=== PATIENT | female | born 1965 | race Caucasian/White ===

== ENCOUNTER 2022-02-14 19:09 | Inpatient (IN) | payer OTHER, SELFPAY ==
--- NOTE | ~2022-02-14 | US_ITS ---
EXAMINATION: US VENOUS ULTRASOUND WITH DOPPLER LOWER EXTREMITY, BILATERAL CLINICAL INFORMATION: Bilateral lower extremity edema COMPARISON: None TECHNIQUE: Ultrasound of the deep veins is performed from the hip to the calf with compression sonography and color and pulse Doppler assessment. Spectral analysis with color-flow imaging is performed. FINDINGS: RIGHT: There is normal venous compression and respiratory variation and augmented flow. The visualized common femoral vein, superficial femoral vein, profunda femoral vein, popliteal vein, and the trifurcation region shows no evidence of deep venous thrombosis. The peroneal veins could not be visualized. There is no significant popliteal fossa cyst. LEFT: There is normal venous compression and respiratory variation and augmented flow. The visualized common femoral vein, superficial femoral vein, profunda femoral vein, popliteal vein, and the trifurcation region shows no evidence of deep venous thrombosis. The peroneal veins could not be visualized. There is no significant popliteal fossa cyst. If the patient's symptoms persist, followup ultrasound in 5 days 7 days might be of value to exclude proximal propagation from a non-visualized calf vein. US/US venous duplex LE BI IMPRESSION: No DVT demonstrated in either lower extremity.
--- OUTSIDE RECORDS SUMMARY | 2022-02-14 19:13 | XMS_ITS | Continuity of Care Document ---
:1965 Author Organization [facility] Address [address] [place] [id number]- Care Team Providers Name Role Phone Alessia MOMIN, Rachael Mccollum Primary Care Physician Encounter [facility] Date(s): 09/20/20 - 09/21/[address] [address] Encounter Diagnosis CAD (coronary artery disease) (Final) - 09/20/20 ECG abnormal (Final) - 09/20/20 Discharge Disposition: A-D/C Home Attending Physician: Steven Tovar MD Admitting Physician: Steven Tovar MD Referring Physician: Not on Staff, Referring MD Allergies, Adverse Reactions, Alerts Substance Reaction Severity Status penicillin Rash <not entered> Active Other Environmental Allergy trees, grass, mold, dust, dust Active mites -cause stuffy nose, watery eyes penicillins systemic edema and rash Persistent Severe Active sulfa drugs systemic edema and rash Persistent Severe Active Immunizations Given and Recorded Vaccine Date Status Refusal Reason influenza virus vaccine, inactivated1 02/05/19 Given tetanus/diphtheria/pertussis, acel(Tdap)2 08/20/18 Given 1Result Comment: [facility] [id number] Site Left [id number] Comment: Given without Incident Medications aspirin 81 mg oral delayed release tablet = 81 mg, By Mouth, Daily, # 30 tablet, 0 Refills, Maintenance, 07/29/20 13:22:00 EDT, EC Tablet, [facility], Partial fill upon patient request if the prescription is for a schedule II opioid drug., 158, cm, 07/29/20 12:06:00 EDT, Height,... Start Date: 07/29/20 Stop Date: 08/28/20 Status: OrderedclonazePAM 1 mg oral tablet See Instructions, Take 1/2 tab by mouth TID prn anxiety, May caouse drowsiness., # 45 tablet, 2 Refills, Maintenance, 08/18/20 17:16:00 EDT, [facility]/pharmacy #[id number], 157, cm, 08/02/20 15:21:00 EDT, Height, 101.7, kg, 08/02/20 1:31:00 EDT, Dry Weight Start Date: 08/18/20 Status: Orderedclopidogrel 75 mg oral tablet 75 mg, 1, tablet, By Mouth, Daily, take clopidogrel 300 mg once first day and from the next day take75 mg daily and stop taking the ticagrelor. continue aspirin, # 90 tablet, Refills 3, Tot. Refills 3, Maintenance, 09/13/20 16:02:00 EDT, Route to [facility]... Start Date: 09/13/20 Stop Date: 09/08/21 Status: Orderedgabapentin 100 mg oral capsule 100 mg, 1, capsule, By Mouth, 3 times a day, # 90 capsule, Refills 0, Maintenance, 09/20/20 18:11:00EDT, Partial fill upon patient request if the prescription is for a schedule II opioid drug. Start Date: 09/20/20 Status: Orderedgabapentin 100 mg oral capsule 100 mg, Capsule, By Mouth, 09/21/20 15:00:00 EDT Start Date: 09/21/20 Stop Date: 09/21/20 Status: Completedisosorbide mononitrate 30 mg oral tablet, extended release 1 tablet = 30 mg, By Mouth, Daily in AM, # 30 tablet, 2 Refills, Maintenance, 09/21/20 17:45:00 EDT,ER Tablet, [facility]/pharmacy #[id number], Partial fill upon patient request if the prescription is for a schedule II opioid drug., 157, cm, 09/16/20 16:24:00 EDT... Start Date: 09/21/20 Status: OrderedLipitor 80 mg oral tablet 1 tablet = 80 mg, By Mouth, Daily at bedtime, # 30 tablet, 0 Refills, Maintenance, 07/29/20 13:23:00EDT, Tablet, [facility], Partial fill upon patient request if the prescription is for a schedule II opioid drug., 158, cm, 07/29/20 12:0... Start Date: 07/29/20 Stop Date: 08/28/20 Status: Orderedlosartan 25 mg oral tablet 25 mg, Tablet, By Mouth, 09/21/20 9:00:00 EDT Start Date: 09/21/20 Stop Date: 09/21/20 Status: Completedlosartan 25 mg oral tablet 25 mg, 1, tablet, By Mouth, Daily, # 30 tablet, Refills 0, Tot. Refills 0, Maintenance, 07/29/20 13:23:00 EDT, Route to Pharmacy Electronically, [facility], Partial fill upon patient request if the prescription is for a schedule II opioi... Start Date: 07/29/20 Stop Date: 08/28/20 Status: Orderedmetoprolol 50 mg oral tablet, extended release 50 mg, XL Tablet, By Mouth, 09/21/20 9:00:00 EDT Start Date: 09/21/20 Stop Date: 09/21/20 Status: Completedmetoprolol 50 mg oral tablet, extended release 50 mg, 1, tablet, By Mouth, Daily, # 30 tablet, Refills 0, Tot. Refills 0, Maintenance, 07/29/20 13:24:00 EDT, Route to Pharmacy Electronically, [facility], Partial fill upon patient request if the prescription is for a schedule II opioi... Start Date: 07/29/20 Stop Date: 08/28/20 Status: OrderedMorPHINE Inj 2 mg, Injection, IV Push Slowly, Every 4 hours for 4 doses/times, PRN for Pain , Severe, Routine, 09/21/20 7:28:00 EDT, Stop date Limited # of times Start Date: 09/21/20 Status: Orderednitroglycerin 0.4 mg sublingual tablet 1 tablet = 0.4 mg, Sublingual, Every 5 minutes, PRN Chest Pain, not to exceed 3 doses/15 min--if pain persists, seek medical attention, # 100 tablet, 0 Refills, Maintenance, 08/02/20 16:09:00 EDT, Tablet, [facility], Partial fill upon pa... Start Date: 08/02/20 Status: OrderedNitroglycerin 2% Topical 1 inches, Ointment, Topically, Apply to Chest, Hold from 9 PM to 9 AM, 09/21/20 6:14:00 EDT Start Date: 09/21/20 Stop Date: 09/21/20 Status: CompletedPARoxetine 10 mg oral tablet 1, tablet, By Mouth, Daily in AM, # 90 tablet, Refills 1, Tot. Refills 1, Maintenance, 04/27/20 12:11:00 EST, Route to Pharmacy Electronically, [facility]/pharmacy #[id number], 156.5, cm, 04/27/20 11:33:00 EST, Height, 97.2, kg, 05/06/19 6:59:00 EST, Dry Weight Start Date: 04/27/20 Status: OrderedtraZODone 100 mg oral tablet 1.5, tablet, By Mouth, Daily at bedtime, # 135 tablet, Refills 0, Tot. Refills 0, Maintenance, 07/09/20 9:31:00 EDT, Route to Pharmacy Electronically, [id number], 156.5, cm, 04/27/20 11:33:00 EST,Height, 97.2, kg, 05/06/19 6:59:00 EST, Dry Weight Start Date: 07/09/20 Status: Ordered Problem List Condition Effective Dates Status Health Status Informant Anxiety(Confirmed) Active Chloasma(Confirmed) Active Depression(Confirmed) Active Gastroesophageal reflux(Confirmed) Active Stress incontinence(Confirmed) Active Keloid scar(Confirmed) Active Non-neoplastic nevus(Confirmed) Active Obesity(Confirmed) Active Osteoarthritis(Confirmed) Active Rosacea(Confirmed) Active Shoulder pain(Confirmed) Active Thalassemia(Confirmed) Active Vital Signs Most recent to oldest 1 2 3 4 5 [Reference Range]: Oxygen Saturation 98 % 97 % 97 % [94-100 %] (09/21/20 3:46 PM) (09/21/20 11:15 AM) (09/21/20 7:00 AM) Pulse Rate [55-90 66 bpm 62 bpm 63 bpm bpm] (09/21/20 3:46 PM) (09/21/20 11:15 AM) (09/21/20 8:42 AM) Blood Pressure 140/71 mm Hg 119/63 mm Hg 120/69 mm Hg 120/69 mm Hg 12 0/69 mm Hg [90-138/55-84 mm Hg] *H* (09/21/20 11:15 AM) (09/21/20 8:42 AM) ( 8:42 AM) (09/21/20 8:42 AM) (09/21/20 3:46 PM) Respiratory Rate 18 br/min 17 br/min 17 br/min [16-30 br/min] (09/21/20 5:10 PM) (09/21/20 3:49 PM) (09/21/20 3:46 PM) Temperature 97.5 DegF 97.4 DegF 97.7 DegF [96.8-100.4 DegF] (09/21/20 3:46 PM) (09/21/20 11:15 AM) (09/21/20 7:00 AM) Liters per Minute 0 L/min (09/20/20 1:24 PM) Mode of Delivery Room air Room air Room air (Oxygen) (09/21/20 3:46 PM) (09/21/20 11:15 AM) (09/21/20 3:45 AM) Blood pressure sites Arm, right Arm, left Arm, right (09/21/20 3:46 PM) (09/21/20 11:15 AM) (09/21/20 7:00 AM) Temperature Route Oral Oral Oral (09/21/20 3:46 PM) (09/21/20 11:15 AM) (09/21/20 7:00 AM) Social History Social History Type Response Smoking Status Never smoker entered on: 02/13/14 Sex
--- OUTSIDE RECORDS SUMMARY | 2022-02-14 19:13 | XMS_ITS | Continuity of Care Document ---
:1965 Author Organization [facility] Address [address] [place] [id number]- Care Team Providers Name Role Phone Alessia MOMIN, Rachael Mccollum Primary Care Physician Encounter [facility] Date(s): 05/06/19 - 05/06/[address] [address]- [facility] Discharge Disposition: A-D/C Home Attending Physician: Arti Johnson MD Admitting Physician: Arti Johnson MD Referring Physician: Arti Johnson MD Allergies, Adverse Reactions, Alerts Substance Reaction Severity Status penicillin Rash <not entered> Active acetaZOLAMIDE sulfa drugs cause systemic edema and rash Active Rash penicillins systemic edema and rash Persistent Severe Active sulfa drugs systemic edema and rash Persistent Severe Active Other Environmental Allergy trees, grass, mold, dust, dust Active mites -cause stuffy nose, watery eyes Immunizations Given and Recorded Vaccine Date Status Refusal Reason influenza virus vaccine, inactivated1 02/05/19 Given tetanus/diphtheria/pertussis, acel(Tdap)2 08/20/18 Given 1Result Comment: [facility] [id number] Site Left [id number] Comment: Given without Incident Medications Baclofen = 20 mg, By Mouth, Daily at bedtime, 0 Refills, Maintenance, 04/30/19 14:58:00 EST Start Date: 04/30/19 Status: Orderedbaclofen 10 mg oral tablet 10 mg, 1, tablet, By Mouth, Daily in AM, # 270 tablet, Refills 0, Maintenance, 02/05/19 15:51:24 EDT Start Date: 02/05/19 Status: OrderedClaritin-D 24 Hour 1 tablet, By Mouth, Daily, 0 Refills, Maintenance, 04/17/14 8:28:31 Start Date: 04/17/14 Status: OrderedclonazePAM 1 mg oral tablet See Instructions, Take 1/2 tab by mouth TID prn anxiety, May caouse drowsiness., # 45 tablet, 2 Refills, Maintenance, 02/20/19 11:46:35 EDT Start Date: 02/20/19 Status: OrderedEstrace Vaginal Cream 0.1 mg/g See Instructions, 1 Gm Vaginally every other day at bedtime, # 42.5 Gm, 0 Refills, Maintenance, 05/06/19 8:31:00 EST, [facility]/pharmacy #[id number], 156.5, cm, 05/06/19 6:59:00 EST, Height, 97.2, kg, 05/06/19 6:59:00 EST, Dry Weight Start Date: 05/06/19 Status: Orderedgabapentin 300 mg/24 hours oral tablet, extended release 1 tablet = 300 mg, By Mouth, 4 times a day, PRN Other, # 90 tablet, 0 Refills, Maintenance, 02/05/1915:52:24 EDT, Tablet Start Date: 02/05/19 Status: OrderedImodium A-D 2 mg, By Mouth, Every 4 hours, Refills 0, Maintenance, 05/06/19 6:55:00 EST Start Date: 05/06/19 Status: OrderedPARoxetine 40 mg oral tablet See Instructions, TAKE 1 TABLET BY MOUTH EVERY DAY IN THE MORNING, # 90 tablet, Refills 1, Tot. Refills 1, Soft Stop, 04/28/19 13:48:00 EST, Instructions Replace Required Details, Route to Pharmacy Electronically, [facility]/pharmacy #[id number], 157.5, cm, 03/12/... Start Date: 04/28/19 Status: OrderedtraZODone 100 mg oral tablet See Instructions, # 45 tablet, Refills 5 Tot. Refills 5, TAKE 1 AND 1/2 TABLETS BY MOUTH DAILY AT BEDTIME, [facility]/pharmacy #[id number] Start Date: 03/09/19 Status: Ordered Problem List Condition Effective Dates Status Health Status Informant Anxiety(Confirmed) Active Chloasma(Confirmed) Active Depression(Confirmed) Active Gastroesophageal reflux(Confirmed) Active Stress incontinence(Confirmed) Active Keloid scar(Confirmed) Active Non-neoplastic nevus(Confirmed) Active Obesity(Confirmed) Active Osteoarthritis(Confirmed) Active Rosacea(Confirmed) Active Shoulder pain(Confirmed) Active Thalassemia(Confirmed) Active Vital Signs Most recent to oldest 1 2 3 [Reference Range]: Height 156.5 cm 157.48 cm (05/06/19 6:59 AM) (04/30/19 2:56 PM) Weight 97.2 kg 95.45 kg (05/06/19 6:59 AM) (04/30/19 2:56 PM) Oxygen Saturation [94-100 95 % 98 % 97 % %] (05/06/19 10:00 AM) (05/06/19 9:45 AM) (05/06/19 9: 30 AM) Pulse Rate [55-90 bpm] 81 bpm (05/06/19 6:59 AM) Body Mass Index 39.69 38.49 [18.5-24.99] *>HHI* *>HHI* (05/06/19 6:59 AM) (04/30/19 2:56 PM) Blood Pressure 137/72 mm Hg 134/68 mm Hg 134/72 mm Hg [90-138/55-84 mm Hg] (05/06/19 10:00 AM) (05/06/19 9:45 AM) ( 9:30 AM) Respiratory Rate [16-30 16 br/min 11 br/min 18 br/mi n br/min] (05/06/19 10:00 AM) *L* (05/06/19 9:36 AM) (05/06/19 9:45 AM) Temperature [96.8-100.4 97.3 DegF 97.6 DegF 97.8 Deg F DegF] (05/06/19 10:00 AM) (05/06/19 8:30 AM) (05/06/19 6: 59 AM) Liters per Minute 2 L/min 2 L/min 2 L/min (05/06/19 9:45 AM) (05/06/19 9:30 AM) (05/06/19 9:1 5 AM) Mode of Delivery (Oxygen) Room air Nasal cannula Nasal cannula (05/06/19 10:00 AM) (05/06/19 9:45 AM) (05/06/19 9: 30 AM) Blood pressure sites Arm, right (05/06/19 6:59 AM) Temperature Route Temporal Temporal (05/06/19 10:00 AM) (05/06/19 6:59 AM) Dry Weight 97.2 kg 95.45 kg (05/06/19 6:59 AM) (04/30/19 2:56 PM) Weight Obtained Via Standing scale Patient/family stated (05/06/19 6:59 AM) (04/30/19 2:56 PM) Dry Weight Obtained Via Standing scale Patient/family stated (05/06/19 6:59 AM) (04/30/19 2:56 PM) Social History Social History Type Response Smoking Status Never smoker entered on: 02/13/14 Sex
--- OUTSIDE RECORDS SUMMARY | 2022-02-14 19:13 | XMS_ITS | Continuity of Care Document ---
:1965 Author Organization [facility] Address [address] [place] [address]- Care Team Providers Name Role Phone Alessia MOMIN, Rachael Mccollum Primary Care Physician [place] [facility] Date(s): 02/07/22 - 02/07/[address] [address] Discharge Disposition: A-D/C Home Attending Physician: Jagdeep Reis MD Admitting Physician: Jagdeep Reis MD Referring Physician: Marry Arredondo NP Allergies, Adverse Reactions, Alerts Substance Reaction Severity Status penicillin Rash <not entered> Active penicillins systemic edema and rash Persistent Severe Active sulfa drugs systemic edema and rash Persistent Severe Active Other Environmental Allergy trees, grass, mold, dust, dust Active mites -cause stuffy nose, watery eyes Immunizations Given and Recorded Vaccine Date Status Refusal Reason SARS-CoV-2 (COVID-19) mRNA BNT-162b2 vac 05/16/21 Recorde d SARS-CoV-2 (COVID-19) mRNA BNT-162b2 vac 10/11/20 Recorde d SARS-CoV-2 (COVID-19) mRNA BNT-162b2 vac 08/21/20 Recorde d influenza virus vaccine, inactivated 04/01/21 Given influenza virus vaccine, inactivated 01/15/20 Recorded influenza virus vaccine, inactivated1 02/05/19 Given influenza virus vaccine, inactivated 02/07/17 Recorded influenza virus vaccine, inactivated 02/15/16 Recorded influenza virus vaccine, inactivated 03/01/10 Recorded zoster vaccine, inactivated 02/18/20 Recorded tetanus/diphtheria/pertussis, acel(Tdap)2 08/20/18 Given 1Result Comment: [facility] [place] [id number] Site Left [id number] Comment: Given without Incident Medications amLODIPine 5 mg oral tablet TAKE 1 TABLET BY MOUTH EVERY DAY Start Date: 02/07/22 Status: Orderedaspirin 81 mg oral delayed release tablet = 81 mg, By Mouth, Daily, # 30 tablet, 0 Refills, Maintenance, 07/29/20 13:22:00 EDT, EC Tablet, [facility], Partial fill upon patient request if the prescription is for a schedule II opioid drug., 158, cm, 07/29/20 12:06:00 EDT, Height,... Start Date: 07/29/20 Stop Date: 08/28/20 Status: OrderedClaritin 10 mg oral tablet 10 mg, 1, tablet, By Mouth, Daily, # 30 tablet, Refills 0, Maintenance, 10/10/21 21:10:00 EDT, Partial fill upon patient request if the prescription is for a schedule II opioid drug. Start Date: 10/10/21 Status: OrderedclonazePAM 1 mg oral tablet See Instructions, Take 1/2 tab by mouth TID prn anxiety, May caouse drowsiness., # 45 tablet, 1 Refills, Maintenance, 01/26/22 17:36:00 EDT, [facility]/pharmacy #[id number], 155, cm, 12/15/21 9:03:00 EDT, Height, 108.8, kg, 12/15/21 8:48:00 EDT, Dry Weight Start Date: 01/26/22 Status: Orderedclopidogrel 75 mg oral tablet 75 mg, 1, tablet, By Mouth, Daily, take clopidogrel 300 mg once first day and from the next day take75 mg daily and stop taking the ticagrelor. continue aspirin, # 90 tablet, Refills 3, Tot. Refills 3, Maintenance, 09/13/20 16:02:00 EDT, Route to Pha... Start Date: 09/13/20 Stop Date: 09/08/21 Status: OrderedLipitor 80 mg oral tablet 1 tablet = 80 mg, By Mouth, Daily at bedtime, # 30 tablet, 0 Refills, Maintenance, 07/29/20 13:23:00EDT, Tablet, [facility], Partial fill upon patient request if the prescription is for a schedule II opioid drug., 158, cm, 07/29/20 12:0... Start Date: 07/29/20 Stop Date: 08/28/20 Status: Orderedmetoprolol 50 mg oral tablet, extended release 50 mg, 1, tablet, By Mouth, Daily, # 30 tablet, Refills 0, Tot. Refills 0, Maintenance, 07/29/20 13:24:00 EDT, Route to Pharmacy Electronically, [facility], Partial fill upon patient request if the prescription is for a schedule II opioi... Start Date: 07/29/20 Stop Date: 08/28/20 Status: Orderednitroglycerin 0.4 mg sublingual tablet 1 tablet = 0.4 mg, Sublingual, Every 5 minutes, PRN Chest Pain, not to exceed 3 doses/15 min--if pain persists, seek medical attention, # 100 tablet, 0 Refills, Maintenance, 08/02/20 16:09:00 EDT, Tablet, [facility], Partial fill upon pa... Start Date: 08/02/20 Status: OrderedPARoxetine 40 mg oral tablet 1, tablet, By Mouth, Daily in AM, # 90 tablet, Refills 0, Route to Pharmacy Electronically, [id number], 155, cm, 11/04/21 11:55:00 EDT, Height, 109.5, kg, 10/11/21 0:03:00 EDT, Dry Weight Start Date: 12/14/21 Status: OrderedpredniSONE 10 mg oral tablet See Instructions, Take 6 by mouth today and tomorrow, then decrease by 1 daily., # 27 tablet, 0 Refills, Maintenance, 11/04/21 12:18:00 EDT, [facility]/pharmacy #[id number], Partial fill upon patient request if theprescription is for a schedule II opioid drug., 1... Start Date: 11/04/21 Status: OrderedtraZODone 100 mg oral tablet 1.5, tablet, By Mouth, Daily at bedtime, # 135 tablet, Refills 1, Route to Pharmacy Electronically, [id number], 157, cm, 04/01/21 14:39:00 EST, Height, 101.7, kg, 08/02/20 1:31:00 EDT, Dry Weight Start Date: 06/03/21 Status: OrderedZyrTEC 10 mg oral tablet 1 tablet = 10 mg, By Mouth, Daily, # 30 tablet, 0 Refills, Maintenance, 12/15/21 8:50:00 EDT, Tablet, Partial fill upon patient request if the prescription is for a schedule II opioid drug. Start Date: 12/15/21 Status: Ordered Problem List Condition Confirmation Course Effective Dates Status Health I nformant Status Anxiety Confirmed Active Arthritis of right Confirmed Active knee Chloasma Confirmed Active Depression Confirmed Active Gastroesophageal Confirmed Active reflux Stress incontinence Confirmed Active Keloid scar Confirmed Active Non-neoplastic nevus Confirmed Active Obesity Confirmed Active Osteoarthritis Confirmed Active Rosacea Confirmed Active Severe obesity Confirmed Active Shoulder pain Confirmed Active Thalassemia Confirmed Active Vital Signs Most recent to oldest 1 2 3 [Reference Range]: Height 163 cm 163 cm (02/07/22 7:40 AM) (02/07/22 7:39 AM) Weight 112.0 kg 112.0 kg (02/07/22 7:40 AM) (02/07/22 7:39 AM) Oxygen Saturation [94-100 %] 96 % 94 % 93 % (02/07/22 3:45 PM) (02/07/22 3:30 PM) *L* (02/07/22 3:15 P M) Pulse Rate [55-90 bpm] 69 bpm (02/07/22 7:40 AM) Body Mass Index [18.5-24.99 42.15 kg/m2 kg/m2] *>HHI* (02/07/22 7:40 AM) Blood Pressure [90-138/55-84 121/75 mm Hg 119/72 mm Hg 128 /73 mm Hg mm Hg] (02/07/22 3:45 PM) (02/07/22 3:30 PM) (02/07/22 3:15 PM) Respiratory Rate [16-30 21 br/min 26 br/min 24 br/mi n br/min] (02/07/22 3:45 PM) (02/07/22 3:30 PM) (02/07/22 3:15 PM) Temperature [96.8-100.4 97.4 DegF DegF] (02/07/22 7:40 AM) Mode of Delivery (Oxygen) Room air Room air Room a ir (02/07/22 3:45 PM) (02/07/22 3:30 PM) (02/07/22 3:15 PM) Blood pressure sites Arm, left Arm, left Arm, left (02/07/22 1:30 PM) (02/07/22 1:15 PM) (02/07/22 7:45 AM) Temperature Route Temporal (02/07/22 7:40 AM) Dry Weight 112.0 kg 112.0 kg (02/07/22 7:40 AM) (02/07/22 7:39 AM) Weight Obtained Via Standing scale Standing scale (02/07/22 7:40 AM) (02/07/22 7:39 AM) Dry Weight Obtained Via Standing scale Standing scale (02/07/22 7:40 AM) (02/07/22 7:39 AM) Social History Social History Type Response Smoking Status Never smoker entered on: 02/13/14 Sex Patient Care team information PersonnelName: Alessia MOMIN, Rachael Mccollum Address: Address: [address] [place] [address] Primary [place], [place] [address]
--- OUTSIDE RECORDS SUMMARY | 2022-02-14 19:13 | XMS_ITS | Continuity of Care Document ---
:1965 Author Organization [facility] Address [address] [place] [address]- Care Team Providers Name Role Phone Alessia MOMIN, Rachael Mccollum Primary Care Physician Encounter [facility] Date(s): 04/21/21 - 07/16/[address] [address] Attending Physician: Arti Johnson MD Admitting Physician: [...] Date Status Refusal Reason influenza virus vaccine, inactivated 04/01/21 Given influenza virus vaccine, inactivated1 02/05/19 Given tetanus/diphtheria/pertussis, acel(Tdap)2 08/20/18 Given 1Result Comment: [facility] [id number] Site Left [id number] Comment: Given without Incident Medications aspirin 81 mg oral delayed release tablet = 81 mg, By Mouth, Daily, # 30 tablet, 0 Refills, Maintenance, 07/29/20 13:22:00 EDT, EC Tablet, [facility], Partial fill upon patient request if the prescription is for a schedule II opioid drug., 158, cm, 07/29/20 12:06:00 EDT, Height,... Start Date: 07/29/20 Stop Date: 08/28/20 Status: OrderedclonazePAM 1 mg oral tablet See Instructions, Take 1/2 tab by mouth TID prn anxiety, May caouse drowsiness., # 45 tablet, 0 Refills, Maintenance, 06/08/21 10:04:00 EST, [facility]/pharmacy #[id number], 157, cm, 04/01/21 14:39:00 EST, Height, 101.7, kg, 08/02/20 1:31:00 EDT, Dry Weight Start Date: 06/08/21 Status: Orderedclopidogrel 75 mg oral tablet 75 mg, 1, tablet, By Mouth, Daily, take clopidogrel 300 mg once first day and from the next day take75 mg daily and stop taking the ticagrelor. continue aspirin, # 90 tablet, Refills 3, Tot. Refills 3, Maintenance, 09/13/20 16:02:00 EDT, Route to [facility]... Start Date: 09/13/20 Stop Date: 09/08/21 Status: Orderedgabapentin 100 mg oral capsule 100 mg, 1, capsule, By Mouth, 3 times a day, # 90 capsule, Refills 0, Maintenance, 09/20/20 18:11:00EDT, Partial fill upon patient request if the prescription is for a schedule II opioid drug. Start Date: 09/20/20 Status: Orderedisosorbide mononitrate 30 mg oral tablet, extended release 1 tablet = 30 mg, By Mouth, Daily in AM, # 30 tablet, 2 Refills, Maintenance, 09/21/20 17:45:00 EDT,ER Tablet, [facility]/pharmacy #[id number], Partial fill upon patient request if the prescription is for a schedule II opioid drug., 157, cm, 09/16/20 16:24:00 EDT... Start Date: 09/21/20 Status: OrderedLipitor 80 mg oral tablet 1 tablet = 80 mg, By Mouth, Daily at bedtime, # 30 tablet, 0 Refills, Maintenance, 07/29/20 13:23:00EDT, Tablet, [facility], Partial fill upon patient request if the prescription is for a schedule II opioid drug., 158, cm, 07/29/20 12:0... Start Date: 07/29/20 Stop Date: 08/28/20 Status: Orderedlosartan 25 mg oral tablet 25 mg, 1, tablet, By Mouth, Daily, # 30 tablet, Refills 0, Tot. Refills 0, Maintenance, 07/29/20 13:23:00 EDT, Route to Pharmacy Electronically, [facility], Partial fill upon patient request if the prescription is for a schedule II opioi... Start Date: 07/29/20 Stop Date: 08/28/20 Status: Orderedmetoprolol 50 mg oral tablet, extended release 50 mg, 1, tablet, By Mouth, Daily, # 30 tablet, Refills 0, Tot. Refills 0, Maintenance, 07/29/20 13:24:00 EDT, Route to Pharmacy Electronically, [facility] 3, Partial fill upon patient request if the prescription is for a schedule II opioi... Start Date: 07/29/20 Stop Date: 08/28/20 Status: Orderednitroglycerin 0.4 mg sublingual tablet 1 tablet = 0.4 mg, Sublingual, Every 5 minutes, PRN Chest Pain, not to exceed 3 doses/15 min--if pain persists, seek medical attention, # 100 tablet, 0 Refills, Maintenance, 08/02/20 16:09:00 EDT, Tablet, [facility] 3, Partial fill upon pa... Start Date: 08/02/20 Status: OrderedPARoxetine 10 mg oral tablet 1, tablet, By Mouth, Daily in AM, # 90 tablet, Refills 1, Tot. Refills 1, Maintenance, 04/01/21 14:47:00 EST, Route to Pharmacy Electronically, [facility]/pharmacy #[id number], 157, cm, 04/01/21 14:39:00 EST, Height, 101.7, kg, 08/02/20 1:31:00 EDT, Dry Weight Start Date: 04/01/21 Status: OrderedPARoxetine 40 mg oral tablet 1, tablet, By Mouth, Daily in AM, # 90 tablet, Refills 0, Route to Pharmacy Electronically, [facility] STORE [id number], 157, cm, 09/16/20 16:24:00 EDT, Height, 101.7, kg, 08/02/20 1:31:00 EDT, Dry Weight Start Date: 03/02/21 Status: OrderedtraZODone 100 mg oral tablet 1.5, tablet, By Mouth, Daily at bedtime, # 135 tablet, Refills 1, Route to Pharmacy Electronically, [facility] STORE [id number], 157, cm, 04/01/21 14:39:00 EST, Height, 101.7, kg, 08/02/20 1:31:00 EDT, Dry Weight Start Date: 06/03/21 Status: Ordered Problem List Condition Effective Dates Status Health Status Informant Anxiety(Confirmed) Active Arthritis of right knee(Confirmed) Active Chloasma(Confirmed) Active Depression(Confirmed) Active Gastroesophageal reflux(Confirmed) Active Stress incontinence(Confirmed) Active Keloid scar(Confirmed) Active Non-neoplastic nevus(Confirmed) Active Obesity(Confirmed) Active Osteoarthritis(Confirmed) Active Rosacea(Confirmed) Active Severe obesity(Confirmed) Active Shoulder pain(Confirmed) Active Thalassemia(Confirmed) Active Social History Social History Type Response Smoking Status Never smoker entered on: 02/13/14 Sex
--- OUTSIDE RECORDS SUMMARY | 2022-02-14 19:13 | XMS_ITS | Continuity of Care Document ---
:1965 Author Organization [facility] Address [address] [place] [address]- Care Team Providers Name Role Phone Alessia MOMIN, Rachael Mccollum Primary Care Physician Encounter [facility] ACCT R [id number] Date(s): 08/11/20 - 09/16/[address] [address] Attending Physician: Jagdeep Ries MD Admitting Physician: Jagdeep Reis MD Referring Physician: Jagdeep Reis MD Allergies, Adverse Reactions, Alerts Substance Reaction [...] Given tetanus/diphtheria/pertussis, acel(Tdap)2 08/20/18 Given 1Result Comment: [facility] [id number] Site Left [id number] Comment: Given without Incident Medications aspirin 81 mg oral delayed release tablet = 81 mg, By Mouth, Daily, # 30 tablet, 0 Refills, Maintenance, 07/29/20 13:22:00 EDT, EC Tablet, [facility], Partial fill upon patient request if the prescription is for a schedule II opioid drug., 158, cm, 07/29/20 12:06:00 EDT, Height,... Start Date: 07/29/20 Stop Date: 08/28/20 Status: OrderedclonazePAM 1 mg oral tablet See Instructions, Take 1/2 tab by mouth TID prn anxiety, May caouse drowsiness., # 45 tablet, 2 Refills, Maintenance, 08/18/20 17:16:00 EDT, [facility]/pharmacy #[id number], 157, cm, 08/02/20 15:21:00 EDT, Height, [...] Date: 09/13/20 Stop Date: 09/08/21 Status: Orderedgabapentin 300 mg/24 hours oral tablet, extended release 1 tablet = 300 mg, By Mouth, 4 times a day, PRN Other, # 90 tablet, 0 Refills, Maintenance, 02/05/1915:52:24 EDT, Tablet Start Date: 02/05/19 Status: OrderedLipitor 80 mg oral tablet 1 tablet = 80 mg, By Mouth, Daily at bedtime, # 30 tablet, 0 Refills, Maintenance, 07/29/20 13:23:00EDT, Tablet, [facility], Partial fill upon patient request if the prescription is for a schedule II opioid drug., 158, cm, 07/29/20 12:0... Start Date: 07/29/20 Stop Date: 08/28/20 Status: Orderedlosartan 25 mg oral tablet 25 mg, 1, tablet, By Mouth, Daily, # 30 tablet, Refills 0, Tot. Refills 0, Maintenance, 07/29/20 13:23:00 EDT, Route to Pharmacy Electronically, [facility], Partial fill upon patient request if the prescription is for a schedule II opioi... Start Date: 07/29/20 Stop Date: 08/28/20 Status: Orderedmetoprolol 50 mg oral tablet, extended release 50 mg, 1, tablet, By Mouth, Daily, # 30 tablet, Refills 0, Tot. Refills 0, Maintenance, 07/29/20 13:24:00 EDT, Route to Pharmacy Electronically, [facility], Partial fill upon patient request if the prescription is for a schedule II opioi... Start Date: 07/29/20 Stop Date: 08/28/20 Status: Orderednitroglycerin 0.4 mg sublingual tablet 1 tablet = 0.4 mg, Sublingual, Every 5 minutes, PRN Chest Pain, not to exceed 3 doses/15 min--if pain persists, seek medical attention, # 100 tablet, 0 Refills, Maintenance, 08/02/20 16:09:00 EDT, Tablet, [facility], Partial fill upon pa... Start Date: 08/02/20 Status: OrderedPARoxetine 10 mg oral tablet 1, tablet, By Mouth, Daily in AM, # 90 tablet, Refills 1, Tot. Refills 1, Maintenance, 04/27/20 12:11:00 EST, Route to Pharmacy Electronically, [facility]/pharmacy #[id number], 156.5, cm, 04/27/20 11:33:00 EST, Height, 97.2, kg, 05/06/19 6:59:00 EST, Dry Weight Start Date: 04/27/20 Status: OrderedPARoxetine 40 mg oral tablet 1, tablet, By Mouth, Daily in AM, # 90 tablet, Refills 1, Tot. Refills 0, Maintenance, 06/11/20 13:10:00 EST, Route to Pharmacy Electronically, [facility] [id number], 156.5, cm, 04/27/20 11:33:00 EST, Height, 97.2, kg, 05/06/19 6:59:00 EST, Dry Weight Start Date: 06/11/20 Status: OrderedtraZODone 100 mg oral tablet 1.5, tablet, By Mouth, Daily at bedtime, # 135 tablet, Refills 0, Tot. Refills 0, Maintenance, 07/09/20 9:31:00 EDT, Route to Pharmacy Electronically, [id number], 156.5, cm, 04/27/20 11:33:00 EST,Height, 97.2, kg, 05/06/19 6:59:00 EST, Dry Weight Start Date: 07/09/20 Status: Ordered Problem List Condition Effective Dates Status Health Status Informant Anxiety(Confirmed) Active Chloasma(Confirmed) Active Depression(Confirmed) Active Gastroesophageal reflux(Confirmed) Active Stress incontinence(Confirmed) Active Keloid scar(Confirmed) Active Non-neoplastic nevus(Confirmed) Active Obesity(Confirmed) Active Osteoarthritis(Confirmed) Active Rosacea(Confirmed) Active Shoulder pain(Confirmed) Active Thalassemia(Confirmed) Active Social History Social History Type Response Smoking Status Never smoker entered on: 02/13/14 Sex
--- OUTSIDE RECORDS SUMMARY | 2022-02-14 19:14 | XMS_ITS | Continuity of Care Document ---
:1965 Author Organization [facility] Address [address] [place] [address]- Care Team Providers Name Role Phone Rachael Aggarwal MD Primary Care Physician Encounter [facility] ACCT R [id number] Date(s): 09/23/20 - 11/13/[address] [address]- Attending Physician: Rachael Aggarwal MD Admitting Physician: Rachael Aggarwal MD Referring Physician: Rachael Aggarwal MD Allergies, Adverse Reactions, Alerts Substance Reaction [...] tetanus/diphtheria/pertussis, acel(Tdap)2 08/20/18 Given 1Result Comment: [facility] [id number] Site Left [id number] Comment: Given without Incident Medications aspirin 81 mg oral delayed release tablet = 81 mg, By Mouth, Daily, # 30 tablet, 0 Refills, Maintenance, 07/29/20 13:22:00 EDT, EC Tablet, [facility], Partial fill upon patient request if the prescription is for a schedule II opioid drug., 158, cm, 07/29/20 12:06:00 EDT, Height,... Start Date: 07/29/20 Stop Date: 08/28/20 Status: OrderedclonazePAM 1 mg oral tablet See Instructions, Take 1/2 tab by mouth TID prn anxiety, May caouse drowsiness., # 45 tablet, 2 Refills, Maintenance, 08/18/20 17:16:00 EDT, [facility]/pharmacy #[id number], 157, cm, 08/02/20 15:21:00 EDT, Height, [...] 3, Maintenance, 09/13/20 16:02:00 EDT, Route to [facility]... Start Date: 09/13/20 Stop Date: [...] 2 Refills, Maintenance, 09/21/20 17:45:00 EDT,ER Tablet, [facility]/pharmacy #[id number], Partial fill upon patient request if the prescription is for a schedule II opioid drug., 157, cm, 09/16/20 16:24:00 EDT... Start Date: 09/21/20 Status: OrderedLipitor 80 mg oral tablet 1 tablet = 80 mg, By Mouth, Daily at bedtime, # 30 tablet, 0 Refills, Maintenance, 07/29/20 13:23:00EDT, Tablet, [facility], Partial fill upon patient request if the prescription is for a schedule II opioid drug., 158, cm, 07/29/20 12:0... Start Date: 07/29/20 Stop Date: 08/28/20 Status: Orderedlosartan 25 mg oral tablet 25 mg, 1, tablet, By Mouth, Daily, # 30 tablet, Refills 0, Tot. Refills 0, Maintenance, 07/29/20 13:23:00 EDT, Route to Pharmacy Electronically, [facility], Partial fill upon patient request if the prescription is for a schedule II opioi... Start Date: 07/29/20 Stop Date: 08/28/20 Status: Orderedmetoprolol 50 mg oral tablet, extended release 50 mg, 1, tablet, By Mouth, Daily, # 30 tablet, Refills 0, Tot. Refills 0, Maintenance, 07/29/20 13:24:00 EDT, Route to Pharmacy Electronically, [facility], Partial fill upon patient request if the prescription is for a schedule II opioi... Start Date: 07/29/20 Stop Date: 08/28/20 Status: Orderednitroglycerin 0.4 mg sublingual tablet 1 tablet = 0.4 mg, Sublingual, Every 5 minutes, PRN Chest Pain, not to exceed 3 doses/15 min--if pain persists, seek medical attention, # 100 tablet, 0 Refills, Maintenance, 08/02/20 16:09:00 EDT, Tablet, [facility], Partial fill upon pa... Start Date: 08/02/20 Status: OrderedPARoxetine 10 mg oral tablet 1, tablet, By Mouth, Daily in AM, # 90 tablet, Refills 0, Tot. Refills 0, Maintenance, 11/09/20 9:55:00 EDT, Route to Pharmacy Electronically, [id number], 157, cm, 09/16/20 16:24:00 EDT, Height, 101.7, kg, 08/02/20 1:31:00 EDT, Dry Weight Start Date: 11/09/20 Status: OrderedtraZODone 100 mg oral tablet 1.5, tablet, By Mouth, Daily at bedtime, # 135 tablet, Refills 0, Tot. Refills 0, Maintenance, 10/08/20 14:59:00 EDT, Route to Pharmacy Electronically, [facility] [id number], 157, cm, 09/16/20 16:24:00 EDT, Height, 101.7, kg, 08/02/20 1:31:00 EDT, Dry Weight Start Date: 10/08/20 Status: Ordered Problem List Condition Effective Dates Status Health Status Informant Anxiety(Confirmed) Active Chloasma(Confirmed) Active Depression(Confirmed) Active Gastroesophageal reflux(Confirmed) Active Stress incontinence(Confirmed) Active Keloid scar(Confirmed) Active Non-neoplastic nevus(Confirmed) Active Obesity(Confirmed) Active Osteoarthritis(Confirmed) Active Rosacea(Confirmed) Active Shoulder pain(Confirmed) Active Thalassemia(Confirmed) Active Social History Social History Type Response Smoking Status Never smoker entered on: 02/13/14 Sex
--- OUTSIDE RECORDS SUMMARY | 2022-02-14 19:14 | XMS_ITS | Continuity of Care Document ---
:1965 Author Organization [facility] Address [address] [place] [address]- Care Team Providers Name Role Phone Rachael Aggarwal MD Primary Care Physician Encounter [facility] Date(s): 10/18/20 - 12/08/[address] [address] Attending Physician: Rachael Aggarwal MD Admitting Physician: [...] Given tetanus/diphtheria/pertussis, acel(Tdap)2 08/20/18 Given 1Result Comment: [facility] [id number] Site Left [id number] Comment: Given without Incident Medications aspirin 81 mg oral delayed release tablet = 81 mg, By Mouth, Daily, # 30 tablet, 0 Refills, Maintenance, 07/29/20 13:22:00 EDT, EC Tablet, [facility], Partial fill upon patient request if the prescription is for a schedule II opioid drug., 158, cm, 07/29/20 12:06:00 EDT, Height,... Start Date: 07/29/20 Stop Date: 08/28/20 Status: OrderedclonazePAM 1 mg oral tablet See Instructions, Take 1/2 tab by mouth TID prn anxiety, May caouse drowsiness., # 45 tablet, 2 Refills, Maintenance, 11/22/20 11:00:00 EDT, [facility]/pharmacy #[id number], 157, cm, 09/16/20 16:24:00 EDT, Height, 101.7, kg, 08/02/20 1:31:00 EDT, Dry Weight Start Date: 11/22/20 Status: Orderedclopidogrel 75 mg oral tablet 75 mg, 1, tablet, By Mouth, Daily, take clopidogrel 300 mg once first day and from the next day take75 mg daily and stop taking the ticagrelor. continue aspirin, # 90 tablet, Refills 3, Tot. Refills 3, Maintenance, 09/13/20 16:02:00 EDT, Route to [facility]... Start Date: 09/13/20 Stop Date: 09/08/21 [...] 2 Refills, Maintenance, 09/21/20 17:45:00 EDT,ER Tablet, [facility]/pharmacy #[id number], Partial fill upon patient request if the prescription is for a schedule II opioid drug., 157, cm, 09/16/20 16:24:00 EDT... Start Date: 09/21/20 Status: OrderedLipitor 80 mg oral tablet 1 tablet = 80 mg, By Mouth, Daily at bedtime, # 30 tablet, 0 Refills, Maintenance, 07/29/20 13:23:00EDT, Tablet, [facility] 3, Partial fill upon patient request if the prescription is for a schedule II opioid drug., 158, cm, 07/29/20 12:0... Start Date: 07/29/20 Stop Date: 08/28/20 Status: Orderedlosartan 25 mg oral tablet 25 mg, 1, tablet, By Mouth, Daily, # 30 tablet, Refills 0, Tot. Refills 0, Maintenance, 07/29/20 13:23:00 EDT, Route to Pharmacy Electronically, [facility] 3, Partial fill upon patient request if the prescription is for a schedule II opioi... Start Date: 07/29/20 Stop Date: 08/28/20 Status: Orderedmetoprolol 50 mg oral tablet, extended release 50 mg, 1, tablet, By Mouth, Daily, # 30 tablet, Refills 0, Tot. Refills 0, Maintenance, 07/29/20 13:24:00 EDT, Route to Pharmacy Electronically, [facility] 3, Partial fill upon patient request if the prescription is for a schedule II opioi... Start Date: 07/29/20 Stop Date: 08/28/20 Status: Orderednitroglycerin 0.4 mg sublingual tablet 1 tablet = 0.4 mg, Sublingual, Every 5 minutes, PRN Chest Pain, not to exceed 3 doses/15 min--if pain persists, seek medical attention, # 100 tablet, 0 Refills, Maintenance, 08/02/20 16:09:00 EDT, Tablet, [facility] 3, Partial fill upon pa... Start Date: 08/02/20 Status: OrderedPARoxetine 10 mg oral tablet 1, tablet, By Mouth, Daily in AM, # 90 tablet, Refills 0, Tot. Refills 0, Maintenance, 11/09/20 9:55:00 EDT, Route to Pharmacy Electronically, [id number], 157, cm, 09/16/20 16:24:00 EDT, Height, 101.7, kg, 08/02/20 1:31:00 EDT, Dry Weight Start Date: 11/09/20 Status: OrderedPARoxetine 40 mg oral tablet 1, tablet, By Mouth, Daily in AM, # 90 tablet, Refills 0, Tot. Refills 0, Maintenance, 12/01/20 13:36:00 EDT, Route to Pharmacy Electronically, [id number], 157, cm, 09/16/20 16:24:00 EDT, Height, 101.7, kg, 08/02/20 1:31:00 EDT, Dry Weight Start Date: 12/01/20 Status: OrderedtraZODone 100 mg oral tablet 1.5, tablet, By Mouth, Daily at bedtime, # 135 tablet, Refills 0, Tot. Refills 0, Maintenance, 10/08/20 14:59:00 EDT, Route to Pharmacy Electronically, [facility] [id number], 157, cm, 09/16/20 16:24:00 EDT, Height, 101.7, [...]
--- OUTSIDE RECORDS SUMMARY | 2022-02-14 19:14 | XMS_ITS | Continuity of Care Document ---
:1965 Author Organization [facility] Address [address] [place] [address]- Care Team Providers Name Role Phone Alessia MOMIN, Rachael Mccollum Primary Care Physician Encounter [facility] Date(s): 05/07/20 - 06/06/[address] [address] Allergies, Adverse Reactions, Alerts Substance Reaction Severity [...] Given tetanus/diphtheria/pertussis, acel(Tdap)2 08/20/18 Given 1Result Comment: [facility] [id number] Site Left [id number] Comment: Given without Incident Medications Claritin-D 24 Hour 1 tablet, By Mouth, Daily, 0 Refills, Maintenance, 04/17/14 8:28:31 Start Date: 04/17/14 Status: OrderedclonazePAM 1 mg oral tablet See Instructions, Take 1/2 tab by mouth TID prn anxiety, May caouse drowsiness., # 45 tablet, 2 Refills, Maintenance, 05/25/20 15:14:00 EST, [facility][id number], 156.5, cm, 04/27/20 11:33:00 EST, Height, 97.2, kg, 05/06/19 6:59:00 EST, Dry Weight Start Date: 05/25/20 Status: Orderedgabapentin 300 mg/24 hours oral tablet, extended release 1 tablet = 300 mg, By Mouth, 4 times a day, PRN Other, # 90 tablet, 0 Refills, Maintenance, 02/05/1915:52:24 EDT, Tablet Start Date: 02/05/19 Status: OrderedPARoxetine 10 mg oral tablet 1, tablet, By Mouth, Daily in AM, # 90 tablet, Refills 1, Tot. Refills 1, Maintenance, 04/27/20 12:11:00 EST, Route to Pharmacy Electronically, [facility]/pharmacy #[id number], 156.5, cm, 04/27/20 11:33:00 EST, Height, 97.2, kg, 05/06/19 6:59:00 EST, Dry Weight Start Date: 04/27/20 Status: OrderedPARoxetine 40 mg oral tablet 1, tablet, By Mouth, Daily in AM, # 90 tablet, Refills 1, Tot. Refills 0, Maintenance, 10/22/19 10:27:00 EDT, Route to Pharmacy Electronically, [id number], 156.5, cm, 05/06/19 6:59:00 EST, Height,97.2, kg, 05/06/19 6:59:00 EST, Dry Weight Start Date: 10/22/19 Status: OrderedtiZANidine 4 mg oral tablet Refills 0, Maintenance, 08/12/19 11:36:00 EDT Start Date: 08/12/19 Status: OrderedtraZODone 100 mg oral tablet See Instructions, TAKE 1 AND 1/2 TABLETS BY MOUTH DAILY AT BEDTIME, # 135 tablet, Refills 0, Maintenance, Instructions Replace Required Details, Route to Pharmacy Electronically, [facility] STORE [id number], 156.5, cm, 05/06/19 6:59:00 EST, Height, 97.2, kg, 04/23... Start Date: 04/10/20 Status: Ordered Problem List Condition Effective Dates Status Health Status Informant Anxiety(Confirmed) Active Chloasma(Confirmed) Active Depression(Confirmed) Active Gastroesophageal reflux(Confirmed) Active Stress incontinence(Confirmed) Active Keloid scar(Confirmed) Active Non-neoplastic nevus(Confirmed) Active Obesity(Confirmed) Active Osteoarthritis(Confirmed) Active Rosacea(Confirmed) Active Shoulder pain(Confirmed) Active Thalassemia(Confirmed) Active Social History Social History Type Response Smoking Status Never smoker entered on: 02/13/14 Sex
--- OUTSIDE RECORDS SUMMARY | 2022-02-14 19:14 | XMS_ITS | Continuity of Care Document ---
:1965 Author Organization [facility] Address [address] [place] [phone]- Care Team Providers Name Role Phone Alessia MOMIN, Rachael Mccollum Primary Care Physician Encounter [facility] [place] Date(s): 04/04/19 - 04/14/[address] [address]- [facility] Attending Physician: Adriel Carpio Admitting Physician: Adriel Carpio Referring Physician: AdmAdriel crook Allergies, Adverse Reactions, Alerts Substance Reaction Severity Status penicillin Rash <not entered> Active acetaZOLAMIDE Rash <not entered> Active penicillins systemic edema and rash Persistent Severe Active sulfa drugs systemic edema and rash Persistent Severe Active Immunizations Given and Recorded Vaccine Date Status Refusal Reason influenza virus vaccine, inactivated1 02/05/19 Given tetanus/diphtheria/pertussis, acel(Tdap)2 08/20/18 Given 1Result Comment: [facility] [id number] Site Left [id number] Comment: Given without Incident Medications baclofen 10 mg oral tablet 10 mg, 1, tablet, By Mouth, 3 times a day, # 270 tablet, Refills 0, Maintenance, 02/05/19 15:51:24 EDT Start Date: 02/05/19 Status: OrderedClaritin-D 24 Hour 1 tablet, By Mouth, Daily, 0 Refills, Maintenance, 04/17/14 8:28:31 Start Date: 04/17/14 Status: OrderedclonazePAM 1 mg oral tablet See Instructions, Take 1/2 tab by mouth TID prn anxiety, May caouse drowsiness., # 45 tablet, 2 Refills, Maintenance, 02/20/19 11:46:35 EDT Start Date: 02/20/19 Status: Orderedgabapentin 300 mg/24 hours oral tablet, extended release 3 tablet = 900 mg, By Mouth, Daily, # 90 tablet, 0 Refills, Maintenance, 02/05/19 15:52:24 EDT, Tablet Start Date: 02/05/19 Status: OrderedPARoxetine 40 mg oral tablet See Instructions, # 90 tablet, Refills 1 Tot. Refills 1, TAKE 1 TABLET BY MOUTH EVERY DAY IN THE MORNING, [facility]/pharmacy #[id number] Start Date: 09/11/18 Status: OrderedtraZODone 100 mg oral tablet See Instructions, # 45 tablet, Refills 5 Tot. Refills 5, TAKE 1 AND 1/2 TABLETS BY MOUTH DAILY AT BEDTIME, [facility]/pharmacy #[id number] Start Date: 03/09/19 Status: Ordered Problem List [...]
--- OUTSIDE RECORDS SUMMARY | 2022-02-14 19:14 | XMS_ITS | Continuity of Care Document ---
:1965 Author Organization [facility] Address [address] [place] [address]- Care Team Providers Name Role Phone Alessia MOMIN, Rachael Mccollum Primary Care Physician Encounter [facility] Date(s): 09/11/21 - 09/13/[address] [address] Encounter Diagnosis Angina pectoris, unstable (Final) - 09/12/21 Discharge Disposition: A-D/C Home Attending Physician: Wild Pringle MD Admitting Physician: Gordon Cope MD Referring Physician: Not on Staff, Referring MD Allergies, Adverse Reactions, Alerts Substance Reaction Severity Status penicillin Rash <not entered> Active penicillins systemic edema and rash Persistent Severe Active Other Environmental Allergy trees, grass, mold, dust, dust Active mites -cause stuffy nose, watery eyes sulfa drugs systemic edema and rash Persistent Severe Active Immunizations Given and Recorded Vaccine Date Status Refusal Reason influenza virus vaccine, inactivated 04/01/21 Given influenza virus vaccine, inactivated1 02/05/19 Given tetanus/diphtheria/pertussis, acel(Tdap)2 08/20/18 Given 1Result Comment: [facility] [id number] Site Left [id number] Comment: Given without Incident Medications acetaminophen 325 mg oral tablet 650 mg, By Mouth, Every 6 hours, PRN, Temperature Greater than 100.5, # 30 tablet, Refills 0, Tot. Refills 0, Acute 10/15/21 7:00:00 EDT, Pain , Mild, 09/13/21 15:29:00 EDT, Route to Pharmacy Electronically, [facility]/pharmacy #[id number], Partial fill upon patie... Start Date: 09/13/21 Stop Date: 10/15/21 Status: Orderedaspirin 81 mg oral delayed release tablet = 81 mg, By Mouth, Daily, # 30 tablet, 0 Refills, Maintenance, 07/29/20 13:22:00 EDT, EC Tablet, [facility], Partial fill upon patient request if the prescription is for a schedule II opioid drug., 158, cm, 07/29/20 12:06:00 EDT, Height,... Start Date: 07/29/20 Stop Date: 08/28/20 Status: OrderedclonazePAM 1 mg oral tablet See Instructions, Take 1/2 tab by mouth TID prn anxiety, May caouse drowsiness., # 45 tablet, 1 Refills, Maintenance, 07/18/21 12:14:00 EDT, [facility]/pharmacy #[id number], 157, cm, 04/01/21 14:39:00 EST, Height, 101.7, kg, 08/02/20 1:31:00 EDT, Dry Weight Start Date: 07/18/21 Status: Orderedclopidogrel 75 mg oral tablet 75 mg, 1, tablet, By Mouth, Daily, take clopidogrel 300 mg once first day and from the next day take75 mg daily and stop taking the ticagrelor. continue aspirin, # 90 tablet, Refills 3, Tot. Refills 3, Maintenance, 09/13/20 16:02:00 EDT, Route to [facility]... Start Date: 09/13/20 Stop Date: 09/08/21 Status: OrderedLipitor 80 mg oral tablet 1 tablet = 80 mg, By Mouth, Daily at bedtime, # 30 tablet, 0 Refills, Maintenance, 07/29/20 13:23:00EDT, Tablet, [facility] 3, Partial fill upon patient request if the prescription is for a schedule II opioid drug., 158, cm, 07/29/20 12:0... Start Date: 07/29/20 Stop Date: 08/28/20 Status: Orderedmetoprolol 50 mg oral tablet, extended release 50 mg, 1, tablet, By Mouth, Daily, # 30 tablet, Refills 0, Tot. Refills 0, Maintenance, 07/29/20 13:24:00 EDT, Route to Pharmacy Electronically, [facility] 3, Partial fill upon patient request if the prescription is for a schedule II opioi... Start Date: 07/29/20 Stop Date: 08/28/20 Status: Orderedmetoprolol 50 mg oral tablet, extended release 50 mg, XL Tablet, By Mouth, 09/13/21 9:00:00 EDT Start Date: 09/13/21 Stop Date: 09/13/21 Status: Completednitroglycerin 0.4 mg sublingual tablet 1 tablet = 0.4 mg, Sublingual, Every 5 minutes, PRN Chest Pain, not to exceed 3 doses/15 min--if pain persists, seek medical attention, # 100 tablet, 0 Refills, Maintenance, 08/02/20 16:09:00 EDT, Tablet, [facility], Partial fill upon pa... Start Date: 08/02/20 Status: OrderedPARoxetine 40 mg oral tablet 1, tablet, By Mouth, Daily in AM, # 90 tablet, Refills 0, Tot. Refills 0, Maintenance, 09/04/21 13:05:00 EDT, Route to Pharmacy Electronically, [facility]/pharmacy #[id number], 157, cm, 04/01/21 14:39:00 EST, Height, 101.7, kg, 08/02/20 1:31:00 EDT, Dry Weight Start Date: 09/04/21 Status: OrderedtraZODone 100 mg oral tablet 1.5, tablet, By Mouth, Daily at bedtime, # 135 tablet, Refills 1, Route to Pharmacy Electronically, [facility] STORE [id number], 157, cm, 04/01/21 14:39:00 EST, Height, 101.7, [...] obesity(Confirmed) Active Shoulder pain(Confirmed) Active Thalassemia(Confirmed) Active Results Radiology Reports Exam Date Time Procedure Performing Provider Status 09/12/21 10:08 AM Chest 2 Views Frontal and Lat Lena Velazquez; Ad [facility] (Verified) Notes:(Chest 2 Views Frontal and Lat) Reason For Exam: AnginaRESULT: Chest 2 Views Frontal and Lat Chest 2 Views Frontal and Lat CLINICAL INDICATION: Chest pain. COMPARISON: Chest x-ray, 08/01/2020. FINDINGS: The cardiac silhouette is mildly enlarged, unchanged. Hilar and mediastinal contours are normal. The lungs are clear. There is no pleural effusion, pneumothorax, or evidence of CHF. No acute osseous abnormality is noted. IMPRESSION: No acute cardiopulmonary process. Mild cardiomegaly, unchanged from prior, without CHF. WSN: [id number] Ordering Physician: Gemma Reinoso Dictated By: Hanane Rios MD Dictated Date/Time: 09/12/21 10:28 a Reviewed By: Hanane Rios MD Signed By: Hanane Rios MD Signed Date/Time: 09/12/21 10:28 am Transcribed By: CARLOS Transcribed Date/Time: 09/12/21 10:27 am Vital Signs Most recent to oldest 1 2 3 [Reference Range]: Oxygen Saturation [94-100 %] 100 % 93 % 96 % (09/13/21 1:23 PM) *L* (09/13/21 8:23 AM) (09/13/21 12:38 PM) Pulse Rate [55-90 bpm] 74 bpm 74 bpm 82 bpm (09/13/21 1:23 PM) (09/13/21 9:15 AM) (09/13/21 8:2 3 AM) Blood Pressure [90-138/55-84 129/60 mm Hg 129/60 mm Hg 130 /81 mm Hg mm Hg] (09/13/21 1:23 PM) (09/13/21 12:38 PM) (09/13/21 9: 15 AM) Respiratory Rate [16-30 19 br/min 19 br/min 18 br/mi n br/min] (09/13/21 1:23 PM) (09/13/21 12:38 PM) (09/13/21 8: 23 AM) Temperature [96.8-100.4 DegF] 98 DegF 97.5 DegF 97 .5 DegF (09/13/21 12:38 PM) (09/13/21 8:23 AM) (09/13/21 2: 49 AM) Mode of Delivery (Oxygen) Room air Room air Room a ir (09/13/21 1:23 PM) (09/13/21 8:23 AM) (09/13/21 2:4 9 AM) Blood pressure sites Arm, left Arm, left Arm, right (09/13/21 1:23 PM) (09/13/21 8:23 AM) (09/13/21 2:4 9 AM) Temperature Route Oral Oral Oral (09/13/21 8:23 AM) (09/13/21 2:49 AM) (09/12/21 8:4 2 PM) Social History Social History Type Response Smoking Status Never smoker entered on: 02/13/14 Sex
--- OUTSIDE RECORDS SUMMARY | 2022-02-14 19:14 | XMS_ITS | Continuity of Care Document ---
:1965 Author Organization [facility] Address [address] [place] [address]- Care Team Providers Name Role Phone Alessia MOMIN, Rachael Mccollum Primary Care Physician Encounter [facility] Date(s): 07/27/20 - 07/29/[address] [address] Encounter Diagnosis Chest pain (Final) - 07/27/20 Discharge Disposition: A-D/C Home Attending Physician: Anatoliy MOMIN, Gordon [place] Admitting Physician: Jose Raul Bower MD, Otilio Duong Referring Physician: Not on Staff, Referring MD [...] Given tetanus/diphtheria/pertussis, acel(Tdap)2 08/20/18 Given 1Result Comment: [facility] [id number] Site Left [id number] Comment: Given without Incident Medications aspirin 81 mg oral delayed release tablet = 81 mg, By Mouth, Daily, # 30 tablet, 0 Refills, Maintenance, 07/29/20 13:22:00 EDT, EC Tablet, [facility], Partial fill upon patient request if the prescription is for a schedule II opioid drug., 158, cm, 07/29/20 12:06:00 EDT, Height,... Start Date: 07/29/20 Stop Date: 08/28/20 Status: OrderedClaritin-D 24 Hour 1 tablet, By Mouth, Daily, 0 Refills, Maintenance, 04/17/14 8:28:31 Start Date: 04/17/14 Status: OrderedclonazePAM 1 mg oral tablet See Instructions, Take 1/2 tab by mouth TID prn anxiety, May caouse drowsiness., # 45 tablet, 2 Refills, Maintenance, 05/25/20 15:14:00 EST, [facility]/pharmacy #[id number], 156.5, cm, 04/27/20 11:33:00 EST, Height, 97.2, kg, 05/06/19 6:59:00 EST, Dry Weight Start Date: 05/25/20 Status: Orderedgabapentin 300 mg oral capsule 300 mg, Capsule, By Mouth, 4 times a day, PRN for Pain , Moderate, Routine, 07/27/20 17:19:00 EDT Start Date: 07/27/20 Stop Date: 07/30/20 Status: Discontinuedgabapentin 300 mg/24 hours oral tablet, extended release 1 tablet = 300 mg, By Mouth, 4 times a day, PRN Other, # 90 tablet, 0 Refills, Maintenance, 02/05/1915:52:24 EDT, Tablet Start Date: 02/05/19 Status: OrderedLipitor 80 mg oral tablet 1 tablet = 80 mg, By Mouth, Daily at bedtime, # 30 tablet, 0 Refills, Maintenance, 07/29/20 13:23:00EDT, Tablet, [facility], Partial fill upon patient request if the prescription is for a schedule II opioid drug., 158, cm, 07/29/20 12:0... Start Date: 07/29/20 Stop Date: 08/28/20 Status: Orderedlosartan 25 mg oral tablet 25 mg, 1, tablet, By Mouth, Daily, # 30 tablet, Refills 0, Tot. Refills 0, Maintenance, 07/29/20 13:23:00 EDT, Route to Pharmacy Electronically, [facility] 3, Partial fill upon patient request if the prescription is for a schedule II opioi... Start Date: 07/29/20 Stop Date: 08/28/20 Status: Orderedlosartan 25 mg oral tablet 25 mg, Tablet, By Mouth, 07/29/20 9:00:00 EDT Start Date: 07/29/20 Stop Date: 07/29/20 Status: Completedmetoprolol 50 mg oral tablet, extended release 50 mg, XL Tablet, By Mouth, 07/29/20 9:00:00 EDT Start Date: 07/29/20 Stop Date: 07/29/20 Status: Completedmetoprolol 50 mg oral tablet, extended release 50 mg, 1, tablet, By Mouth, Daily, # 30 tablet, Refills 0, Tot. Refills 0, Maintenance, 07/29/20 13:24:00 EDT, Route to Pharmacy Electronically, [facility], Partial fill upon patient request if the prescription is for a schedule II opioi... Start Date: 07/29/20 Stop Date: 08/28/20 Status: OrderedPARoxetine 10 mg oral tablet 1, tablet, By Mouth, Daily in AM, # 90 tablet, Refills 1, Tot. Refills 1, Maintenance, 04/27/20 12:11:00 EST, Route to Pharmacy Electronically, [facility]/pharmacy #[id number], 156.5, cm, 04/27/20 11:33:00 EST, Height, 97.2, kg, 05/06/19 6:59:00 EST, Dry Weight Start Date: 04/27/20 Status: OrderedPARoxetine 40 mg oral tablet 1, tablet, By Mouth, Daily in AM, # 90 tablet, Refills 1, Tot. Refills 0, Maintenance, 06/11/20 13:10:00 EST, Route to Pharmacy Electronically, [facility] [id number], 156.5, cm, 04/27/20 11:33:00 EST, Height, 97.2, kg, 05/06/19 6:59:00 EST, Dry Weight Start Date: 06/11/20 Status: Orderedticagrelor 90 mg oral tablet 1 tablet = 90 mg, By Mouth, 2 times a day, # 60 tablet, 0 Refills, Maintenance, 07/29/20 13:24:00 EDT, Tablet, [facility] 3, Partial fill upon patient request if the prescription is for a schedule II opioid drug., 158, cm, 07/29/20 12:06:0... Start Date: 07/29/20 Status: OrderedtiZANidine 4 mg oral tablet Refills 0, Maintenance, 08/12/19 11:36:00 EDT Start Date: 08/12/19 Status: OrderedtraZODone 100 mg oral tablet 1.5, tablet, By Mouth, Daily at bedtime, # 135 tablet, Refills 0, Tot. Refills 0, Maintenance, 07/09/20 9:31:00 EDT, Route to Pharmacy Electronically, [facility] 0[facility], 156.5, cm, 04/27/20 11:33:00 EST,Height, 97.2, kg, 05/06/19 6:59:00 EST, Dry Weight Start Date: 07/09/20 Status: Ordered Problem List Condition Effective Dates Status Health Status Informant Anxiety(Confirmed) Active Chloasma(Confirmed) Active Depression(Confirmed) Active Gastroesophageal reflux(Confirmed) Active Stress incontinence(Confirmed) Active Keloid scar(Confirmed) Active Non-neoplastic nevus(Confirmed) Active Obesity(Confirmed) Active Osteoarthritis(Confirmed) Active Rosacea(Confirmed) Active Shoulder pain(Confirmed) Active Thalassemia(Confirmed) Active Results Radiology Reports Exam Date Time Procedure Performing Provider Status 07/27/20 12:27 AM Chest 2 Views Frontal and Lat Pushpa Shepherd; Au th (Verified) Notes:(Chest 2 Views Frontal and Lat) Reason For Exam: Shortness of Breath RESULT: Chest 2 Views Frontal and Lat Chest 2 Views Frontal and Lat Hx of Present Illness: pt reports intermittent left sided chest pain for the past 2 weeks. COMPARISON: 04/11/2020. FINDINGS: LINES AND TUBES: None. LUNGS AND PLEURA: Lung volumes are somewhat diminished. There is consolidative opacity identified in the cardiophrenic angle medially at the right lung basenot as well seen on the lateral view likely in the middle lobe concerning for developing infiltrate and pneumonia. No pleural effusion. No pneumothorax. HEART, MEDIASTINUM AND JAME: Heart is normal in size. Normal upper mediastinal and hilar contour. BONES AND SOFT TISSUES: No acute abnormality. IMPRESSION: Right basilar infiltrate versus atelectasis. WSN: [id number] Ordering Physician: Cordelia Orozco Dictated By: Neftali Lucas MD Dictated Date/Time: 07/27/20 7:59 am Reviewed By: Neftali Lucas MD Signed By: Neftali Lucas MD Signed Date/Time: 07/27/20 7:59 am Transcribed By: CARLOS Transcribed Date/Time: 07/27/20 7:56 am Vital Signs Most recent to oldest [Reference 1 2 3 Range]: Height 158 cm 158 cm 158 cm (07/29/20 12:06 PM) (07/29/20 7:14 AM) (07/29/20 4:22 AM) Weight 101.7 kg (07/27/20 4:40 PM) Oxygen Saturation [94-100 %] 97 % 98 % 98 % (07/29/20 12:06 PM) (07/29/20 7:14 AM) (07/29/20 4:22 AM) Pulse Rate [55-90 bpm] 62 bpm 61 bpm 61 bpm (07/29/20 12:06 PM) (07/29/20 8:52 AM) (07/29/20 7:14 AM) Body Mass Index [18.5-24.99] 40.74 *>HHI* (07/27/20 4:40 PM) Blood Pressure [90-138/55-84 mm 144/70 mm Hg 133/61 mm Hg 133/61 mm Hg Hg] *H* (07/29/20 8:53 AM) (07/29/20 8:52 AM ) (07/29/20 12:06 PM) Respiratory Rate [16-30 br/min] 18 br/min 18 br/min 18 br/min (07/29/20 3:27 PM) (07/29/20 12:06 PM) (07/29/20 9:10 AM) Temperature [96.8-100.4 DegF] 97.9 DegF 97.5 DegF 98 .0 DegF (07/29/20 12:06 PM) (07/29/20 7:14 AM) (07/29/20 4:22 AM) Liters per Minute 2 L/min (07/28/20 2:57 PM) Mode of Delivery (Oxygen) Room air Room air Room a ir (07/29/20 12:06 PM) (07/29/20 7:14 AM) (07/29/20 4:22 AM) Blood pressure sites Leg, right Leg, right Leg, left (07/29/20 12:06 PM) (07/29/20 7:14 AM) (07/29/20 4:22 AM) Temperature Route Oral Temporal Oral (07/29/20 12:06 PM) (07/29/20 7:14 AM) (07/29/20 4:22 AM) Dry Weight 97.2 kg (07/27/20 4:40 PM) Social History Social History Type Response Smoking Status Never smoker entered on: 02/13/14 Sex
--- OUTSIDE RECORDS SUMMARY | 2022-02-14 19:14 | XMS_ITS | Continuity of Care Document ---
:1965 Author Organization [facility] Address [address] [place] [id number]- Care Team Providers Name Role Phone Alessia MOMIN, Rachael Mccollum Primary Care Physician Encounter [facility] [place] Date(s): 09/08/20 - 11/05/[address] [address] Encounter Diagnosis Non-ST elevation (NSTEMI) myocardial infarction (Final) - Discharge Disposition: A-D/C Home Attending Physician: Jagdeep [...] Given tetanus/diphtheria/pertussis, acel(Tdap)2 08/20/18 Given 1Result Comment: [facility] [id number] Site Left [id number] Comment: Given without Incident Medications aspirin 81 mg oral delayed release tablet = 81 mg, By Mouth, Daily, # 30 tablet, 0 Refills, Maintenance, 07/29/20 13:22:00 EDT, EC Tablet, [facility], Partial fill upon patient request if the prescription is for a schedule II opioid drug., 158, cm, 07/29/20 12:06:00 EDT, Height,... Start Date: 07/29/20 Stop Date: 08/28/20 Status: OrderedclonazePAM 1 mg oral tablet See Instructions, Take 1/2 tab by mouth TID prn anxiety, May caouse drowsiness., # 45 tablet, 2 Refills, Maintenance, 08/18/20 17:16:00 EDT, [facility]/pharmacy #[id number], 157, cm, 08/02/20 15:21:00 EDT, Height, [...] 3, Maintenance, 09/13/20 16:02:00 EDT, Route to [facility]... Start Date: 09/13/20 Stop Date: 09/08/21 Status: [...] 2 Refills, Maintenance, 09/21/20 17:45:00 EDT,ER Tablet, [facility]/pharmacy #[id number], Partial fill upon patient request if the prescription is for a schedule II opioid drug., 157, cm, 09/16/20 16:24:00 EDT... Start Date: 09/21/20 Status: OrderedLipitor 80 mg oral tablet 1 tablet = 80 mg, By Mouth, Daily at bedtime, # 30 tablet, 0 Refills, Maintenance, 07/29/20 13:23:00EDT, Tablet, [facility], Partial fill upon patient request if the prescription is for a schedule II opioid drug., 158, cm, 07/29/20 12:0... Start Date: 07/29/20 Stop Date: 08/28/20 Status: Orderedlosartan 25 mg oral tablet 25 mg, 1, tablet, By Mouth, Daily, # 30 tablet, Refills 0, Tot. Refills 0, Maintenance, 07/29/20 13:23:00 EDT, Route to Pharmacy Electronically, [facility], Partial fill upon patient request if the prescription is for a schedule II opioi... Start Date: 07/29/20 Stop Date: 08/28/20 Status: Orderedmetoprolol 50 mg oral tablet, extended release 50 mg, 1, tablet, By Mouth, Daily, # 30 tablet, Refills 0, Tot. Refills 0, Maintenance, 07/29/20 13:24:00 EDT, Route to Pharmacy Electronically, [facility], Partial fill upon patient request if the prescription is for a schedule II opioi... Start Date: 07/29/20 Stop Date: 08/28/20 Status: Orderednitroglycerin 0.4 mg sublingual tablet 1 tablet = 0.4 mg, Sublingual, Every 5 minutes, PRN Chest Pain, not to exceed 3 doses/15 min--if pain persists, seek medical attention, # 100 tablet, 0 Refills, Maintenance, 08/02/20 16:09:00 EDT, Tablet, [facility], Partial fill upon pa... Start Date: 08/02/20 Status: OrderedPARoxetine 10 mg oral tablet 1, tablet, By Mouth, Daily in AM, # 90 tablet, Refills 1, Tot. Refills 1, Maintenance, 04/27/20 12:11:00 EST, Route to Pharmacy Electronically, [facility]/pharmacy #[id number], 156.5, cm, 04/27/20 11:33:00 EST, Height, 97.2, kg, 05/06/19 6:59:00 EST, Dry Weight Start Date: 04/27/20 Status: OrderedtraZODone 100 mg oral tablet 1.5, tablet, By Mouth, Daily at bedtime, # 135 tablet, Refills 0, Tot. Refills 0, Maintenance, 10/08/20 14:59:00 EDT, Route to Pharmacy Electronically, [facility] ST[id number], 157, cm, 09/16/20 16:24:00 EDT, Height, 101.7, kg, 08/02/20 1:31:00 EDT, Dry Weight Start Date: 6/18/21 Status: Ordered Problem List Condition Effective Dates Status Health Status Informant Anxiety(Confirmed) Active Chloasma(Confirmed) Active Depression(Confirmed) Active Gastroesophageal reflux(Confirmed) Active Stress incontinence(Confirmed) Active Keloid scar(Confirmed) Active Non-neoplastic nevus(Confirmed) Active Obesity(Confirmed) Active Osteoarthritis(Confirmed) Active Rosacea(Confirmed) Active Shoulder pain(Confirmed) Active Thalassemia(Confirmed) Active Social History Social History Type Response Smoking Status Never smoker entered on: 02/13/14 Sex
--- OUTSIDE RECORDS SUMMARY | 2022-02-14 19:14 | XMS_ITS | Continuity of Care Document ---
:1965 Author Organization [facility] Address [address] [place] [id number]- Care Team Providers Name Role Phone Alessia MOMIN, Rachael Mccollum Primary Care Physician En[place] [facility] Date(s): 04/29/19 - 04/29/[address] [address] [facility] Attending Physician: Arti Johnson MD Allergies, Adverse Reactions, Alerts Substance Reaction Severity Status penicillin Rash <not entered> Active acetaZOLAMIDE Rash <not entered> Active penicillins systemic edema and rash Persistent Severe Active sulfa drugs systemic edema and rash Persistent Severe Active Immunizations Given and Recorded Vaccine Date Status Refusal Reason influenza virus vaccine, inactivated1 02/05/19 Given tetanus/diphtheria/pertussis, acel(Tdap)2 08/20/18 Given 1Result Comment: [facility] [id number] Site Left [id number] Comment: Given without Incident Medications baclofen 10 [...] Replace Required Details, Route to Pharmacy Electronically, [facility]/pharmacy #[id number], 157.5, cm, 03/12/... Start Date: 04/28/19 Status: OrderedtraZODone 100 mg oral tablet See Instructions, # 45 tablet, Refills 5 Tot. Refills 5, TAKE 1 AND 1/2 TABLETS BY MOUTH DAILY AT BEDTIME, [facility]/pharmacy #[id number] Start Date: 03/09/19 Status: Ordered Problem [...]
--- OUTSIDE RECORDS SUMMARY | 2022-02-14 19:14 | XMS_ITS | Continuity of Care Document ---
:1965 Author Organization [facility] Address [address] [place] [id number]- Care Team Providers Name Role Phone Alessia MOMIN, Rachael Mccollum Primary Care Physician Encounter [facility] Date(s): 04/11/20 - 04/12/[address] [address]- Encounter Diagnosis Headache (Final) - 04/11/20 Discharge Disposition: A-D/C Home Attending Physician: Sung García MD Admitting Physician: Sung García MD Referring Physician: Not on Staff, Referring [...] Given tetanus/diphtheria/pertussis, acel(Tdap)2 08/20/18 Given 1Result Comment: [facility] [id number] Site Left [id number] Comment: Given without Incident Medications Acetaminophen Tablet 650 mg, Tablet, By Mouth, Once, STAT, 04/11/20 21:14:00 EST, Stop date 04/11/20 21:14:00 EST Start Date: 04/11/20 Stop Date: 04/11/20 Status: CompletedClaritin-D 24 Hour 1 tablet, By Mouth, Daily, 0 Refills, Maintenance, 04/17/14 8:28:31 Start Date: 04/17/14 Status: OrderedclonazePAM 1 mg oral tablet See Instructions, Take 1/2 tab by mouth TID prn anxiety, May caouse drowsiness., # 45 tablet, 2 Refills, Maintenance, 02/13/20 15:14:00 EDT, [facility]/pharmacy #[id number], 156.5, cm, 05/06/19 6:59:00 EST, Height,97.2, kg, 05/06/19 6:59:00 EST, Dry Weight Start Date: 02/13/20 Status: Orderedgabapentin 300 mg/24 hours oral tablet, extended release 1 tablet = 300 mg, By Mouth, 4 times a day, PRN Other, # 90 tablet, 0 Refills, Maintenance, 02/05/1915:52:24 EDT, Tablet Start Date: 02/05/19 Status: OrderedPARoxetine 10 mg oral tablet 1, tablet, By Mouth, Daily in AM, # 90 tablet, Refills 0, Tot. Refills 0, Maintenance, 01/09/20 17:02:00 EDT, Route to Pharmacy Electronically, [facility]/pharmacy #[id number], 156.5, cm, 05/06/19 6:59:00 EST, Height, 97.2, kg, 05/06/19 6:59:00 EST, Dry Weight Start Date: 01/09/20 Status: OrderedPARoxetine 40 mg oral tablet 1, tablet, By Mouth, Daily in AM, # 90 tablet, Refills 1, Tot. Refills 0, Maintenance, 10/22/19 10:27:00 EDT, Route to Pharmacy Electronically, [facility] STORE [id number], 156.5, cm, 05/06/19 6:59:00 EST, Height,97.2, kg, 05/06/19 6:59:00 EST, Dry Weight Start Date: 10/22/19 Status: OrderedtiZANidine 4 mg oral tablet Refills 0, Maintenance, 08/12/19 11:36:00 EDT Start Date: 08/12/19 Status: OrderedToradol Inj 15 mg, Injection, IV Push Slowly, Once, STAT, 04/11/20 22:47:00 EST, Stop date 04/11/20 22:47:00 EST Start Date: 04/11/20 Stop Date: 04/11/20 Status: CompletedtraZODone 100 mg oral tablet See Instructions, TAKE 1 AND 1/2 TABLETS BY MOUTH DAILY AT BEDTIME, # 135 tablet, Refills 0, Maintenance, Instructions Replace Required Details, Route to Pharmacy Electronically, [facility] STORE [id number], 156.5, cm, 05/06/19 6:59:00 EST, Height, 97.2, kg, 04/23... Start Date: 04/10/20 Status: Ordered Problem List Condition Effective Dates Status Health Status Informant Anxiety(Confirmed) Active Chloasma(Confirmed) Active Depression(Confirmed) Active Gastroesophageal reflux(Confirmed) Active Stress incontinence(Confirmed) Active Keloid scar(Confirmed) Active Non-neoplastic nevus(Confirmed) Active Obesity(Confirmed) Active Osteoarthritis(Confirmed) Active Rosacea(Confirmed) Active Shoulder pain(Confirmed) Active Thalassemia(Confirmed) Active Results Radiology Reports Exam Date Time Procedure Performing Provider Status 04/11/20 9:34 PM Chest Portable Maria Victoria Adams; Jose (Verified ) Notes:(Chest Portable) Reason For Exam: Chest Pain;Other:RESULT: Chest Portable Chest Portable Hx of Present Illness: Pt reports headache and nasal congestion x 2 weeks, followed by a non-productive cough that started on Sunday. Pt states she tested positive for covid on Sunday COMPARISON: 04/17/2014 FINDINGS: LINES AND TUBES: None. LUNGS AND PLEURA: Mild hazy interstitial opacities in the periphery of the right lung. Left lung is clear. No consolidation. No pleural effusion. No pneumothorax. HEART, MEDIASTINUM AND JAME: Heart is normal in size. Normal upper mediastinal and hilar contour. BONES AND SOFT TISSUES: No acute abnormality. IMPRESSION: Mild peripheral right lung interstitial opacities. This pattern would be compatible with COVID-19 infection in the appropriate clinical setting (fever, dry cough, lymphopenia), but other etiologies remain in the differential. WSN: [id number] Ordering Physician: Katarzyna Alcaraz Dictated By: Herb Cha DO Dictated Date/Time: 04/11/20 9:48 pm Reviewed By: Herb Cha DO Signed By: Herb Cha DO Signed Date/Time: 04/11/20 9:48 pm Transcribed By: CARLOS Transcribed Date/Time: 04/11/20 9:48 pm Vital Signs Most recent to oldest 1 2 3 4 [Reference Range]: Oxygen Saturation 99 % 98 % 97 % [94-100 %] (04/12/20 12:04 AM) (04/11/20 11:00 PM) (04/11/20 10:3 5 PM) Pulse Rate [55-90 bpm] 76 bpm 77 bpm 80 bpm (04/12/20 12:04 AM) (04/11/20 11:00 PM) (04/11/20 10:3 5 PM) Blood Pressure 142/81 mm Hg 157/84 mm Hg 148/67 mm Hg [90-138/55-84 mm Hg] *H* *H* *H* (04/12/20 12:04 AM) (04/11/20 11:00 PM) (04/11/20 10:3 5 PM) Respiratory Rate [16-30 16 br/min 16 br/min 16 br/min 20 b r/min br/min] (04/12/20 12:04 AM) (04/11/20 11:50 PM) (04/11/20 11:0 0 PM) (04/11/20 11:00 PM) Temperature [96.8-100.4 98.9 DegF DegF] (04/11/20 8:29 PM) Mode of Delivery Room air Room air Room air (Oxygen) (04/12/20 12:04 AM) (04/11/20 11:00 PM) (04/11/20 10:3 5 PM) Blood pressure sites Arm, left Arm, left Arm, right (04/12/20 12:04 AM) (04/11/20 11:00 PM) (04/11/20 10:3 5 PM) Temperature Route Oral (04/11/20 8:29 PM) Social History Social History Type Response Smoking Status Never smoker entered on: 02/13/14 Sex
--- OUTSIDE RECORDS SUMMARY | 2022-02-14 19:14 | XMS_ITS | Continuity of Care Document ---
:1965 Author Organization [facility] Address [address] [place] [address]- Care Team Providers Name Role Phone Alessia MOMIN, Rachael Mccollum Primary Care Physician Encounter [facility] Date(s): 08/01/20 - 08/02/[address] [address]- Encounter Diagnosis Unstable angina (Final) - 08/01/20 Discharge Disposition: A-D/C Home Attending Physician: Bailey Villegas MD Admitting Physician: Tato Ascencio MD Referring Physician: Not on Staff, Referring [...] Given tetanus/diphtheria/pertussis, acel(Tdap)2 08/20/18 Given 1Result Comment: [facility] [id number] Site Left [id number] Comment: Given without Incident Medications aspirin 81 mg oral delayed release tablet = 81 mg, By Mouth, Daily, # 30 tablet, 0 Refills, Maintenance, 07/29/20 13:22:00 EDT, EC Tablet, [facility], Partial fill upon [...] tablet, 2 Refills, Maintenance, 05/25/20 15:14:00 EST, [facility]/pharmacy #[id number], 156.5, cm, 04/27/20 11:33:00 EST, Height, 97.2, kg, 05/06/19 6:59:00 EST, Dry Weight Start Date: 05/25/20 Status: Orderedgabapentin 300 mg oral capsule 300 mg, Capsule, By Mouth, 4 times a day, PRN for Other, Routine, 08/02/20 3:51:00 EDT Start Date: 08/02/20 Stop Date: 09/01/20 Status: Orderedgabapentin 300 mg/24 hours oral tablet, extended release 1 tablet = 300 mg, By Mouth, 4 times a day, PRN Other, # 90 tablet, 0 Refills, Maintenance, 02/05/1915:52:24 EDT, Tablet Start Date: 02/05/19 Status: OrderedLipitor 80 mg oral tablet 1 tablet = 80 mg, By Mouth, Daily at bedtime, # 30 tablet, 0 Refills, Maintenance, 07/29/20 13:23:00EDT, Tablet, [facility], Partial fill upon patient request if the prescription is for a schedule II opioid drug., 158, cm, 07/29/20 12:0... Start Date: 07/29/20 Stop Date: 08/28/20 Status: Orderedlosartan 25 mg oral tablet 25 mg, 1, tablet, By Mouth, Daily, # 30 tablet, Refills 0, Tot. Refills 0, Maintenance, 07/29/20 13:23:00 EDT, Route to Pharmacy Electronically, [facility], Partial fill upon patient request if the prescription is for a schedule II opioi... Start Date: 07/29/20 Stop Date: 08/28/20 Status: Orderedlosartan 25 mg oral tablet 25 mg, Tablet, By Mouth, 08/02/20 9:00:00 EDT Start Date: 08/02/20 Stop Date: 08/02/20 Status: Completedmetoprolol 50 mg oral tablet, extended release 50 mg, 1, tablet, By Mouth, Daily, # 30 tablet, Refills 0, Tot. Refills 0, Maintenance, 07/29/20 13:24:00 EDT, Route to Pharmacy Electronically, [facility], Partial fill upon patient request if the prescription is for a schedule II opioi... Start Date: 07/29/20 Stop Date: 08/28/20 Status: Orderedmetoprolol 50 mg oral tablet, extended release 50 mg, XL Tablet, By Mouth, 08/02/20 9:00:00 EDT Start Date: 08/02/20 Stop Date: 08/02/20 Status: Completednitroglycerin 0.4 mg sublingual tablet 1 tablet = 0.4 mg, Sublingual, Every 5 minutes, PRN Chest Pain, not to exceed 3 doses/15 min--if pain persists, seek medical attention, # 100 tablet, 0 Refills, Maintenance, 08/02/20 16:09:00 EDT, Tablet, [facility], Partial fill upon pa... Start Date: 08/02/20 Status: OrderedPARoxetine 10 mg oral tablet 1, tablet, By Mouth, Daily in AM, # 90 tablet, Refills 1, Tot. Refills 1, Maintenance, 04/27/20 12:11:00 EST, Route to Pharmacy Electronically, [facility]/pharmacy #[id number], 156.5, cm, 04/27/20 11:33:00 EST, Height, 97.2, kg, 05/06/19 6:59:00 EST, Dry Weight Start Date: 04/27/20 Status: OrderedPARoxetine 40 mg oral tablet 1, tablet, By Mouth, Daily in AM, # 90 tablet, Refills 1, Tot. Refills 0, Maintenance, 06/11/20 13:10:00 EST, Route to Pharmacy Electronically, [facility] STORE [id number], 156.5, cm, 04/27/20 11:33:00 EST, Height, 97.2, kg, 05/06/19 6:59:00 EST, Dry Weight Start Date: 06/11/20 Status: Orderedticagrelor 90 mg oral tablet 1 tablet = 90 mg, By Mouth, 2 times a day, # 60 tablet, 0 Refills, Maintenance, 07/29/20 13:24:00 EDT, Tablet, [facility], Partial fill upon [...] 07/09/20 9:31:00 EDT, Route to Pharmacy Electronically, [facility]ORE [id number], 156.5, cm, 04/27/20 11:33:00 EST,Height, 97.2, kg, [...] Exam Date Time Procedure Performing Provider Status 08/01/20 8:44 PM Chest Portable Dash Gupta; Jose (Verified) Notes:(Chest Portable) Reason For Exam: Shortness of BreathRESULT: Chest Portable Chest Portable, AP upright Hx of Present Illness: pt reports onset of diffuse chest pain, dull, 45mins ago while sitting, stayed constant since onset. also reports some SOB. recent NC with stent placement.; Reason: Shortness of Breath; Clinical Question(s): CHF COMPARISON: 07/27/2020. Earlier studies reviewed. FINDINGS: LINES AND TUBES: None. LUNGS AND PLEURA: Clear lungs. Normal pulmonary vascularity. No pleural effusion. No pneumothorax. HEART, MEDIASTINUM AND JAME: Heart is normal in size. Normal upper mediastinal and hilar contour. BONES AND SOFT TISSUES: No acute abnormality. IMPRESSION: No CHF or other acute abnormality. WSN: [id number] Ordering Physician: Clifton Haley Dictated By: Andre Noguera MD Dictated Date/Time: 08/01/20 8:52 pm Reviewed By: Andre Noguera MD Signed By: Andre Noguera MD Signed Date/Time: 08/01/20 8:52 pm Transcribed By: CARLOS Transcribed Date/Time: 08/01/20 8:49 pm Vital Signs Most recent to oldest 1 2 3 [Reference Range]: Height 157 cm 157 cm 157 cm (08/02/20 3:21 PM) (08/02/20 9:50 AM) (08/02/20 7:5 1 AM) Weight 101.7 kg 101.7 kg 101.6 kg (08/02/20 9:50 AM) (08/02/20 1:19 AM) (08/01/20 11: 58 PM) Oxygen Saturation [94-100 %] 99 % 98 % 100 % (08/02/20 3:21 PM) (08/02/20 7:51 AM) (08/02/20 4:2 8 AM) Pulse Rate [55-90 bpm] 62 bpm 95 bpm 64 bpm (08/02/20 3:21 PM) *H* (08/02/20 7:51 AM) (08/02/20 9:45 AM) Body Mass Index [18.5-24.99] 41.26 *>HHI* (08/02/20 1:19 AM) Blood Pressure [90-138/55-84 147/77 mm Hg 122/88 mm Hg 122 /88 mm Hg mm Hg] *H* (08/02/20 9:45 AM) (08/02/20 9:45 AM) (08/02/20 3:21 PM) Respiratory Rate [16-30 18 br/min 18 br/min 18 br/mi n br/min] (08/02/20 3:21 PM) (08/02/20 3:13 PM) (08/02/20 7:5 1 AM) Temperature [96.8-100.4 DegF] 97.9 DegF 97.7 DegF 97 .4 DegF (08/02/20 3:21 PM) (08/02/20 7:51 AM) (08/02/20 4:2 8 AM) Mode of Delivery (Oxygen) Room air Room air Room a ir (08/02/20 3:21 PM) (08/02/20 7:51 AM) (08/02/20 4:2 8 AM) Blood pressure sites Arm, left Arm, left Arm, right (08/02/20 3:21 PM) (08/02/20 7:51 AM) (08/02/20 4:2 8 AM) Temperature Route Oral Oral Oral (08/02/20 3:21 PM) (08/02/20 7:51 AM) (08/02/20 4:2 8 AM) Dry Weight 101.7 kg (08/02/20 1:19 AM) Weight Obtained Via Bed scale (08/01/20 11:58 PM) Social History Social History Type Response Smoking Status Never smoker entered on: 02/13/14 Sex
[2022-02-14] MEDS: Acetaminophen 325 MG TABLET 650 MG PO (21:20)
[2022-02-14] MEDS: traZODone HCL 50 MG TABLET 150 MG PO (21:21)
[2022-02-14] MEDS: PARoxetine HCL 40 MG TABLET PO (21:22)
[2022-02-14] MEDS: clonazePAM 0.5 MG TABLET PO (21:22)
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
[2022-02-15] MEDS: Aspirin 81 MG TAB.CHEW PO (08:13)
[2022-02-15] MEDS: Loratadine 10 MG TABLET PO (08:13)
[2022-02-15] MEDS: amLODIPine Besylate 5 MG TABLET PO (08:14)
[2022-02-15 08:19] VITALS: BP 181/92; PULSE 90; RESP 18; TEMP 36.7; O2SAT 96
[2022-02-15 09:25] LABS: Estimated Average Glucose 114 mg/dL; Hemoglobin A1c % 5.6 %
[2022-02-15 09:45] LABS: Cholesterol 178 mg/dL; HDL Cholesterol 41 mg/dL; LDL Cholesterol Calculated 100 mg/dl; Magnesium 1.7 mg/dL (1.6-2.6); Triglycerides 187 mg/dL
[2022-02-15 10:00] LABS: Free T4 (Free Thyroxine) 0.93 ng/dL (0.71-1.85); Thyroid Stimulating Hormone 2.24 uIU/mL (0.32-4.0)
[2022-02-15 10:49] LABS: Folate 4.7 ng/mL (> or = 4.0); Vitamin B12 303 pg/mL (200-900)
[2022-02-15] MEDS: traMADoL HCL 50 MG TABLET PO ×2 (12:52→20:09)
[2022-02-15] MEDS: clonazePAM 0.5 MG TABLET PO ×2 (15:21→20:05)
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
[2022-02-15 16:18] LABS: Anion Gap 20 (12-20); Blood Urea Nitrogen 16 mg/dL (9-16); Calcium 9.1 mg/dL (8.4-10.2); Carbon Dioxide 23 mmol/L (22-29); Chloride 103 mmol/L (96-108); Estimated Glomerular Filt Rate 56; Glucose Random 107 mg/dL (60-115); Potassium 4.1 mmol/L (3.3-5.1); Sodium 142 mmol/L (135-145)
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
[2022-02-15 18:00] VITALS: BP 149/99; PULSE 111; RESP 16; TEMP 36.6; O2SAT 98
[2022-02-15] MEDS: Ibuprofen 800 MG TABLET PO (18:22)
[2022-02-15] MEDS: Pregabalin 25 MG CAPSULE PO (18:23)
[2022-02-15] MEDS: Bismuth Subsalicylate 262 MG TABLET PO (20:07)
[2022-02-15] MEDS: traZODone HCL 50 MG TABLET 150 MG PO (20:07)
[2022-02-15] MEDS: Metoprolol Succinate ER 50 MG TAB.ER.24H PO (20:07)
[2022-02-15] MEDS: PARoxetine HCL 10 MG TABLET 50 MG PO (20:09)
[2022-02-15] MEDS: Atorvastatin Calcium 80 MG TABLET PO (20:09)
[2022-02-16 06:00] VITALS: BP 143/84; PULSE 93; RESP 14; TEMP 36.3; O2SAT 95
[2022-02-16] MEDS: Aspirin 81 MG TAB.CHEW PO (08:22)
[2022-02-16] MEDS: Pregabalin 25 MG CAPSULE PO ×3 (08:22→20:09)
[2022-02-16] MEDS: Clopidogrel Bisulfate 75 MG TABLET PO (08:22)
[2022-02-16] MEDS: clonazePAM 0.5 MG TABLET PO ×3 (08:23→20:09)
[2022-02-16] MEDS: amLODIPine Besylate 5 MG TABLET PO (08:23)
[2022-02-16] MEDS: Loratadine 10 MG TABLET PO (08:23)
--- NOTE | 2022-02-16 09:00 | ECG_ITS ---
Test Reason : S/P AK, CATH Blood Pressure : / mmHG Vent. Rate : 096 BPM Atrial Rate : 096 BPM P-R Int : 154 ms QRS Dur : 102 ms QT Int : 356 ms P-R-T Axes : 055 053 133 degrees QTc Int : 449 ms Normal sinus rhythm Intra-ventricular conduction delay Nonspecific T wave abnormality Abnormal ECG No previous ECGs available Referred By: Karis Romano Electronically Signed By:JOSE GUADALUPE MCWILLIAMS MD
[2022-02-16 10:38] VITALS: PULSE 110; O2SAT 96
[2022-02-16] MEDS: Bismuth Subsalicylate 262 MG TABLET PO (10:53)
[2022-02-16] MEDS: Ibuprofen 800 MG TABLET PO (11:30)
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
[2022-02-16 18:00] VITALS: BP 136/85; PULSE 121; TEMP 36.2; O2SAT 96
[2022-02-16] MEDS: Loperamide HCl 2 MG CAPSULE 4 MG PO (18:10)
[2022-02-16] MEDS: traZODone HCL 50 MG TABLET 150 MG PO (20:09)
[2022-02-16] MEDS: Atorvastatin Calcium 80 MG TABLET PO (20:09)
[2022-02-16] MEDS: PARoxetine HCL 10 MG TABLET 50 MG PO (20:09)
[2022-02-16] MEDS: Metoprolol Succinate ER 50 MG TAB.ER.24H PO (20:09)
[2022-02-17 06:00] VITALS: BP 138/83; PULSE 89; RESP 14; TEMP 36.6; O2SAT 97
[2022-02-17] MEDS: clonazePAM 0.5 MG TABLET PO ×3 (08:19→20:20)
[2022-02-17] MEDS: Aspirin 81 MG TAB.CHEW PO (08:19)
[2022-02-17] MEDS: amLODIPine Besylate 5 MG TABLET PO (08:19)
[2022-02-17] MEDS: Loratadine 10 MG TABLET PO (08:19)
[2022-02-17] MEDS: Pregabalin 25 MG CAPSULE PO ×3 (08:19→20:22)
[2022-02-17] MEDS: Clopidogrel Bisulfate 75 MG TABLET PO (08:19)
[2022-02-17] MEDS: Ibuprofen 800 MG TABLET PO ×2 (08:46→20:23)
[2022-02-17] MEDS: traMADoL HCL 50 MG TABLET PO (14:48)
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
[2022-02-17] MEDS: Acetaminophen 325 MG TABLET 650 MG PO (16:10)
[2022-02-17 20:10] VITALS: BP 119/59; PULSE 89; TEMP 36.5
[2022-02-17] MEDS: traZODone HCL 50 MG TABLET 150 MG PO (20:19)
[2022-02-17] MEDS: PARoxetine HCL 10 MG TABLET 50 MG PO (20:21)
[2022-02-17] MEDS: Metoprolol Succinate ER 50 MG TAB.ER.24H PO (20:23)
[2022-02-17] MEDS: Atorvastatin Calcium 80 MG TABLET PO (20:24)
[2022-02-18 06:00] VITALS: BP 168/82; PULSE 71; RESP 14; TEMP 36.4; O2SAT 97
[2022-02-18] MEDS: clonazePAM 0.5 MG TABLET PO ×3 (08:47→21:37)
[2022-02-18] MEDS: Pregabalin 25 MG CAPSULE PO ×3 (08:47→21:38)
[2022-02-18] MEDS: traMADoL HCL 50 MG TABLET PO ×2 (08:47→17:21)
[2022-02-18] MEDS: Clopidogrel Bisulfate 75 MG TABLET PO (08:47)
[2022-02-18] MEDS: amLODIPine Besylate 5 MG TABLET PO (08:47)
[2022-02-18] MEDS: Aspirin 81 MG TAB.CHEW PO (08:47)
[2022-02-18] MEDS: Loratadine 10 MG TABLET PO (08:47)
[2022-02-18] MEDS: Ibuprofen 800 MG TABLET PO ×2 (09:11→17:21)
[2022-02-18] MEDS: Acetaminophen 325 MG TABLET 650 MG PO (12:58)
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
[2022-02-18 21:30] VITALS: BP 143/74; PULSE 78; TEMP 36.1
[2022-02-18] MEDS: PARoxetine HCL 10 MG TABLET 50 MG PO (21:36)
[2022-02-18] MEDS: Atorvastatin Calcium 80 MG TABLET PO (21:37)
[2022-02-18] MEDS: traZODone HCL 50 MG TABLET 150 MG PO (21:37)
[2022-02-18] MEDS: Metoprolol Succinate ER 50 MG TAB.ER.24H PO (21:38)
[2022-02-19] MEDS: Acetaminophen 325 MG TABLET 650 MG PO ×2 (05:04→18:08)
[2022-02-19] MEDS: Ibuprofen 800 MG TABLET PO ×2 (05:05→13:46)
[2022-02-19] MEDS: traMADoL HCL 50 MG TABLET PO ×3 (05:06→20:40)
[2022-02-19 08:03] VITALS: BP 122/56; PULSE 85; RESP 16; TEMP 37.2; O2SAT 96
[2022-02-19] MEDS: Aspirin 81 MG TAB.CHEW PO (08:41)
[2022-02-19] MEDS: clonazePAM 0.5 MG TABLET PO ×3 (08:42→20:41)
[2022-02-19] MEDS: Clopidogrel Bisulfate 75 MG TABLET PO (08:42)
[2022-02-19] MEDS: amLODIPine Besylate 5 MG TABLET PO (08:42)
[2022-02-19] MEDS: Loratadine 10 MG TABLET PO (08:42)
[2022-02-19] MEDS: Pregabalin 25 MG CAPSULE PO ×3 (08:46→20:41)
--- NOTE | 2022-02-19 13:10 | P.PNPSI_ITS ---
Subjective Subjective Date of Service: 02/19/22 Reason For Visit: Unspecified Dpressive Disorder Interim History: Patient seen and discussed. Patient focused on knee pain. She reports she is feeling somewhat irritable today. Denies SI. Denies / Review of Systems Review of Systems General: No fevers, malaise, unintentional weight loss HEENT: +blurred vision left eye. No diplopia Cardiovascular: No chest pain, palpitations, +b/l leg swelling Respiratory: No shortness of breath, wheezing, cough GI: No abdominal pain, nausea, vomiting, diarrhea, constipation, melena, hematochezia Gu: No dysuria, hematuria, increased urinary frequency MSK: No calf tenderness Neuro: +dizziness/vertigo. No headaches, weakness, paresthesias Skin: No rashes or lesions Constitutional: Reports headache(s) Reports vertigo, Reports dizziness, Reports headache(s) and Reports neck pain Musculoskeletal: Reports back pain and Reports neck pain Reports vertigo, Reports dizziness and Reports headache(s) Psychiatric: Reports anxiety, Reports depression, Reports difficulty concentrating, Reports hopelessness, Reports anhedonia and Reports suicidal ideation Mental Status Exam Mental Status Exam Patient Appearance: Fatigued and Appropriate Patient Orientation: Person, Place, Time and Situation Level of Consciousness: Alert Patient Behavior: Appropriate, Talkative, Cooperative and Good Eye Contact Mood Description: Depressed, Anxious and Sad Affect Description: Flat Patient Cognition Impaired: No Ability to Follow Directions: Good Speech Pattern: Spontaneous Speech Memory Description: Episodic Impaired Diagnostics Vital Signs (24Hr): Vital Signs - 24 hr 02/19/22 08:03 02/19/22 17:30 Temperature 99 F 98.2 F Pulse Rate 85 75 Respiratory Rate 16 Blood Pressure 122/56 L 173/86 H Pulse Oximetry 96 Oxygen Delivery Method Room Air High Flow Nasal Cannula Labs Results: 02/15/22 08:23 Imaging Radiology Impressions: ITS Impressions Venous Duplex 02/15/22 15:22 IMPRESSION: No DVT demonstrated in either lower extremity. Medications Medications Current Medications Acetaminophen (Acetaminophen 325 Mg Tablet) 650 mg PO Q6H PRN PRN Reason: Headache/Pain Mild Scale (1-3) Last Admin: 02/19/22 18:08 Dose: 650 mg Al Hydroxide/Mg Hydroxide (Magnesium Hydrox/Alum Hydrox 30 Ml Oral.Susp) 30 ml PO Q6H PRN PRN Reason: Heartburn/Nausea Amlodipine Besylate (Amlodipine Besylate 5 Mg Tablet) 5 mg PO DAILY [facility]; Protocol Last Admin: 02/19/22 08:42 Dose: 5 mg Aspirin (Aspirin 81 Mg Tab.Chew) 81 mg PO DAILY [facility] Last Admin: 02/19/22 08:41 Dose: 81 mg Atorvastatin Calcium (Atorvastatin Calcium 80 Mg Tablet) 80 mg PO BEDTIME [facility] Last Admin: 02/19/22 20:39 Dose: 80 mg Bismuth Subsalicylate (Bismuth Subsalicylate 262 Mg Tablet) 262 mg PO QID PRN PRN Reason: Indigestion Last Admin: 02/16/22 10:53 Dose: 262 mg Clopidogrel Bisulfate (Clopidogrel Bisulfate 75 Mg Tablet) 75 mg PO DAILY [facility] Last Admin: 02/19/22 08:42 Dose: 75 mg Hydroxyzine HCl (Hydroxyzine Hcl 25 Mg Tablet) 25 mg PO Q6H PRN PRN Reason: Anxiety Ibuprofen (Ibuprofen 800 Mg Tablet) 800 mg PO Q8H PRN PRN Reason: Pain, Mild (Pain Scale 1-3) Last Admin: 02/19/22 13:46 Dose: 800 mg Loperamide HCl (Loperamide Hcl 2 Mg Capsule) 4 mg PO Q6H PRN PRN Reason: Diarrhea Last Admin: 02/16/22 18:10 Dose: 4 mg Loratadine (Loratadine 10 Mg Tablet) 10 mg PO DAILY [facility] Last Admin: 02/19/22 08:42 Dose: 10 mg Magnesium Hydroxide (Milk Of Magnesia 30 Ml Oral.Susp) 30 ml PO DAILY PRN PRN Reason: Constipation Meclizine HCl (Meclizine Hcl 25 Mg Tablet) 25 mg PO Q8H PRN PRN Reason: Vertigo Metoprolol Succinate (Metoprolol Succinate Er 50 Mg Tab.Er.24h) 50 mg PO BEDTIME [facility]; Protocol Last Admin: 02/19/22 20:42 Dose: 50 mg Nitroglycerin (Nitroglycerin 0.4 Mg Tab.Subl) 0.4 mg SUBLINGUAL Q5MX3 PRN PRN Reason: Angina Pt Own (Diclofenac (Sodium Gel 1 %)) 1 % TOPICAL QID PRN PRN Reason: pain Last Admin: 02/19/22 18:09 Dose: 1 % Paroxetine HCl (Paroxetine Hcl 10 Mg Tablet) 50 mg PO BEDTIME [facility] Last Admin: 02/19/22 20:39 Dose: 50 mg Pregabalin (Pregabalin 25 Mg Capsule) 25 mg PO TID [facility] Last Admin: 02/19/22 20:41 Dose: 25 mg Tramadol HCl (Tramadol Hcl 50 Mg Tablet) 50 mg PO Q6H PRN PRN Reason: neck, knee pain Last Admin: 02/19/22 20:40 Dose: 50 mg Trazodone HCl (Trazodone Hcl 50 Mg Tablet) 150 mg PO BEDTIME [facility] Last Admin: 02/19/22 20:38 Dose: 150 mg Allergies Allergies Allergy/AdvReac Type Severity Reaction Status Date / Time penicillin G Allergy Unknown Verified 08/25/19 00:00 Sulfacet-R Allergy Unknown Uncoded 08/25/19 00:00 Assessment & Plan Assessment & Plan (1) Recurrent major depression: Status: Acute Code(s): F33.9 - Major depressive disorder, recurrent, unspecified (2) Anxiety: Status: Acute Code(s): F41.9 - Anxiety disorder, unspecified Plan 56 yo female who reports declining mood and cognitive functioning since [facility] 09/2018 with increasing sx s/p [place] 07/2020 and with increasing sx since 09/2021. Several stressors including finances, discord with one of the children and needing to apply for disability. Plan: Continue current regime today Collateral contact-Cortisone injections since Apr 2019 possibly contributing to mood sx. Pt on Paxil 50 mg since 2000. Will discuss cross titration. EKG 02/17/22- Continue current regime. 02/18: Continue current plan. 02/19: Continue treatment plan. Consider Michael I spent minutes with the patient and/or on the patient floor today, nj ter than?50% of which was spent counseling/coordinating care. Reason for contiued inpatient stay Substantial Risk for: harm to self, inability to function and rapid decompensation
[2022-02-19 17:30] VITALS: BP 173/86; PULSE 75; TEMP 36.8
[2022-02-19] MEDS: traZODone HCL 50 MG TABLET 150 MG PO (20:38)
[2022-02-19] MEDS: Atorvastatin Calcium 80 MG TABLET PO (20:39)
[2022-02-19] MEDS: PARoxetine HCL 10 MG TABLET 50 MG PO (20:39)
[2022-02-19] MEDS: Metoprolol Succinate ER 50 MG TAB.ER.24H PO (20:42)
[2022-02-20] MEDS: Ibuprofen 800 MG TABLET PO ×3 (00:28→19:44)
[2022-02-20] MEDS: amLODIPine Besylate 5 MG TABLET PO (08:06)
[2022-02-20] MEDS: Clopidogrel Bisulfate 75 MG TABLET PO (08:07)
[2022-02-20] MEDS: traMADoL HCL 50 MG TABLET PO ×3 (08:07→21:27)
[2022-02-20] MEDS: Loratadine 10 MG TABLET PO (08:07)
[2022-02-20] MEDS: Aspirin 81 MG TAB.CHEW PO (08:07)
[2022-02-20] MEDS: Pregabalin 25 MG CAPSULE PO ×3 (08:07→21:28)
[2022-02-20 09:03] VITALS: BP 155/84; PULSE 73; RESP 13; TEMP 36.6; O2SAT 94
[2022-02-20] MEDS: hydrOXYzine HCL 25 MG TABLET PO (09:43)
[2022-02-20] MEDS: Acetaminophen 325 MG TABLET 650 MG PO (09:43)
--- NOTE | 2022-02-20 15:09 | HO.PSYCHPN ---
Subjective Subjective Date of Service: 02/20/22 Reason For Visit: Unspecified Dpressive Disorder Subjective Notes: Conditional Voluntary Healthcare Proxy: No Guardianship: No Medical Problems Affecting Mental Status: Yes Interim History: Discussed medications with pt. Cardiology group Dr. Montague ([facility]) consulted on 02/17. They are not wanting pt to trial Cymbalta. Review of buspirone/lamictal with pt and we will begin these trials. Review of aftercare needs. Discussed making cardiac follow up, appt with postconcussion clinic, pain mgt, [facility] (knee pain). Declines eval for [facility] and nutritional consult recommended. Using REINIER stockings however believes BLE edema is more painful and not improved. She requests hospitalist eval which was ordered. Discussed consult of 02/17 with recommendation to not use diuretics and trial REINIER stockings. Pt is aware however wants increase in medical intervention. Medication Compliance: Yes Side effects from medications: No Attending Groups: Intermittent Review of Systems Acute medical concerns: Yes BLE Edema HTN Medical Review of Systems: unchanged Mental Status Exam Mental Status Exam Patient Appearance: Appropriate Patient Orientation: Person, Place, Time and Situation Level of Consciousness: Alert Patient Behavior: Appropriate, Talkative, Cooperative and Good Eye Contact Mood Description: Depressed and Anxious Affect Description: Flat Patient Cognition Impaired: No Ability to Follow Directions: Good Speech Pattern: Spontaneous Speech Memory Description: Intact Hallucinations: None Delusions: Not Present Perceptual Disturbances: Derealization Thought Process: Distracted and Rumination Thought Content: positive for Circumstantial, positive for Goal Oriented and positive for Perseveration Depressive Symptoms: Increased Anxiety, Diff. Making Decisions, Muscle Tension, Muscle Pain, Crying Spells, Feelings of Worthlessness, Significant Weight Gain, Hopelessness, Increased Fatigue, Low Self Esteem, Loss of Energy and Difficulty Concentrating Judgement: Good Diagnostics Vital Signs (24Hr): Vital Signs - 24 hr 02/19/22 17:30 02/20/22 09:03 Temperature 98.2 F 98 F Pulse Rate 75 73 Respiratory Rate 13 Blood Pressure 173/86 H 155/84 H Pulse Oximetry 94 Oxygen Delivery Method Room Air Labs Results: 02/15/22 08:23 Imaging Radiology Impressions: ITS Impressions Venous Duplex 02/15/22 15:22 IMPRESSION: No DVT demonstrated in either lower extremity. Medications Medications Current Medications Acetaminophen (Acetaminophen 325 Mg Tablet) 650 mg PO Q6H PRN PRN Reason: Headache/Pain Mild Scale (1-3) Last Admin: 02/20/22 09:43 Dose: 650 mg Al Hydroxide/Mg Hydroxide (Magnesium Hydrox/Alum Hydrox 30 Ml Oral.Susp) 30 ml PO Q6H PRN PRN Reason: Heartburn/Nausea Amlodipine Besylate (Amlodipine Besylate 5 Mg Tablet) 5 mg PO DAILY [facility]; Protocol Last Admin: 02/20/22 08:06 Dose: 5 mg Aspirin (Aspirin 81 Mg Tab.Chew) 81 mg PO DAILY [facility] Last Admin: 02/20/22 08:07 Dose: 81 mg Atorvastatin Calcium (Atorvastatin Calcium 80 Mg Tablet) 80 mg PO BEDTIME [facility] Last Admin: 02/19/22 20:39 Dose: 80 mg Bismuth Subsalicylate (Bismuth Subsalicylate 262 Mg Tablet) 262 mg PO QID PRN PRN Reason: Indigestion Last Admin: 02/16/22 10:53 Dose: 262 mg Clopidogrel Bisulfate (Clopidogrel Bisulfate 75 Mg Tablet) 75 mg PO DAILY [facility] Last Admin: 02/20/22 08:07 Dose: 75 mg Hydroxyzine HCl (Hydroxyzine Hcl 25 Mg Tablet) 25 mg PO Q6H PRN PRN Reason: Anxiety Last Admin: 02/20/22 09:43 Dose: 25 mg Ibuprofen (Ibuprofen 800 Mg Tablet) 800 mg PO Q8H PRN PRN Reason: Pain, Mild (Pain Scale 1-3) Last Admin: 02/20/22 08:06 Dose: 800 mg Loperamide HCl (Loperamide Hcl 2 Mg Capsule) 4 mg PO Q6H PRN PRN Reason: Diarrhea Last Admin: 02/16/22 18:10 Dose: 4 mg Loratadine (Loratadine 10 Mg Tablet) 10 mg PO DAILY [facility] Last Admin: 02/20/22 08:07 Dose: 10 mg Magnesium Hydroxide (Milk Of Magnesia 30 Ml Oral.Susp) 30 ml PO DAILY PRN PRN Reason: Constipation Meclizine HCl (Meclizine Hcl 25 Mg Tablet) 25 mg PO Q8H PRN PRN Reason: Vertigo Metoprolol Succinate (Metoprolol Succinate Er 50 Mg Tab.Er.24h) 50 mg PO BEDTIME [facility]; Protocol Last Admin: 02/19/22 20:42 Dose: 50 mg Nitroglycerin (Nitroglycerin 0.4 Mg Tab.Subl) 0.4 mg SUBLINGUAL Q5MX3 PRN PRN Reason: Angina Pt Own (Diclofenac (Sodium Gel 1 %)) 1 % TOPICAL QID PRN PRN Reason: pain Last Admin: 02/19/22 18:09 Dose: 1 % Paroxetine HCl (Paroxetine Hcl 10 Mg Tablet) 50 mg PO BEDTIME [facility] Last Admin: 02/19/22 20:39 Dose: 50 mg Pregabalin (Pregabalin 25 Mg Capsule) 25 mg PO TID [facility] Last Admin: 02/20/22 14:19 Dose: 25 mg Tramadol HCl (Tramadol Hcl 50 Mg Tablet) 50 mg PO Q6H PRN PRN Reason: neck, knee pain Last Admin: 02/20/22 14:19 Dose: 50 mg Trazodone HCl (Trazodone Hcl 50 Mg Tablet) 150 mg PO BEDTIME [facility] Last Admin: 02/19/22 20:38 Dose: 150 mg Allergies Allergies Allergy/AdvReac Type Severity Reaction Status Date / Time penicillin G Allergy Unknown Verified 08/25/19 00:00 Sulfacet-R Allergy Unknown Uncoded 08/25/19 00:00 Assessment & Plan Assessment & Plan (1) Recurrent major depression: Status: Acute Code(s): F33.9 - Major depressive disorder, recurrent, unspecified (2) Anxiety: Status: Acute Code(s): F41.9 - Anxiety disorder, unspecified Plan 56 yo female who reports declining mood and cognitive functioning since [facility] 09/2018 with increasing sx s/p [place] 07/2020 and with increasing sx since 09/2021. Several stressors including finances, discord with one of the children and needing to apply for disability. Plan: Continue current regime today Collateral contact-Cortisone injections since Apr 2019 possibly contributing to mood sx. Pt on Paxil 50 mg since 2000. Will discuss cross titration. EKG 02/17/22- Continue current regime. 02/18: Continue current plan. 02/19: Continue treatment plan. Consider Cymbalta 02/20/22: Cardiology group Dr. Reis does not support Cymbalta trial-discussed with them 02/17 Begin buspirone 5 mg tid Begin lamictal 25 mg hs Aftercare planning, medical and psychiatric I spent minutes with the patient and/or on the patient floor today, greater than?50% of which was spent counseling/coordinating care. Patient educated on: diagnosis, medication risk/benefits, therapeutic strategies and medical condition Informed Consent: understands and further education needed Reason for contiued inpatient stay Substantial Risk for: inability to function and med/psych decompensation
[2022-02-20 21:15] VITALS: BP 129/60; PULSE 78; TEMP 36.1
[2022-02-20] MEDS: PARoxetine HCL 10 MG TABLET 50 MG PO (21:25)
[2022-02-20] MEDS: busPIRone HCl 5 MG TABLET PO (21:27)
[2022-02-20] MEDS: traZODone HCL 50 MG TABLET 150 MG PO (21:28)
[2022-02-20] MEDS: Metoprolol Succinate ER 50 MG TAB.ER.24H PO (21:30)
[2022-02-20] MEDS: Atorvastatin Calcium 80 MG TABLET PO (21:31)
[2022-02-20] MEDS: lamoTRIgine 25 MG TABLET PO (21:31)
[2022-02-21 08:32] VITALS: BP 176/84; PULSE 73; RESP 18; TEMP 36.3; O2SAT 97
[2022-02-21] MEDS: busPIRone HCl 5 MG TABLET PO (08:41)
[2022-02-21] MEDS: Pregabalin 25 MG CAPSULE PO (08:41)
[2022-02-21] MEDS: Aspirin 81 MG TAB.CHEW PO (08:41)
[2022-02-21] MEDS: amLODIPine Besylate 5 MG TABLET PO (08:41)
[2022-02-21] MEDS: Clopidogrel Bisulfate 75 MG TABLET PO (08:42)
[2022-02-21] MEDS: Loratadine 10 MG TABLET PO (08:42)
[2022-02-21 10:01] VITALS: BP 176/84; PULSE 73; O2SAT 97
[2022-02-21] MEDS: Ibuprofen 800 MG TABLET PO (11:07)
--- NOTE | 2022-02-21 12:39 | PM.EVENT ---
Event Note Date of Service: 02/21/22 Event Note: Patient was seen as consult on 02/15. Does have lower extremity edema bilateral, nonpitting which is likely dependent edema due to venous insufficiency. Venous duplex negative for DVT. Kidney function at baseline. No orthopnea or PND and no concern for congestive heart failure. Recommend close follow-up with PCP. Discontinue amlodipine. Continue compression stockings with leg elevation while sleeping. Check urinary protein, TSH and LFTs as an outpatient
--- NOTE | 2022-02-21 17:14 | P.DS_ITS ---
DS: Providers Provider Date of Service: 02/21/22 Date of admission: 02/14/22 19:09 Date of discharge: 02/21/22 Primary care physician: Rachael Aggarwal MD Admitting clinician: Karis Romano Attending physician on admission: Robreto Jarquin Consults: 02/14/22 19:43 Consult to Hospitalist Routine Consulting Provider: Hospitalist Reason For Exam: new admission from [facility] 02/20/22 10:10 Consult to Hospitalist Routine Consulting Provider: Hospitalist Reason For Exam: new ble edema-compression not effective Attending physician on discharge: Roberto Jarquin Discharging clinician: Karis Romano DS: Diagnosis Discharge Diagnosis (1) Recurrent major depression: Status: Acute (2) Anxiety: Status: Acute DS: Medications Discharge Medications Home Medications: Previous Rx's Medication Instructions Recorded tizanidine 4 mg tablet 4 mg PO BID PRN for muscle spasm 04/19/20 #180 tabs amlodipine 5 mg tablet 5 mg PO DAILY #7 tabs 02/21/22 aspirin 81 mg chewable tablet 81 mg PO DAILY #7 tabs 02/21/22 atorvastatin 80 mg tablet 80 mg PO BEDTIME #7 tabs 02/21/22 buspirone 5 mg tablet 5 mg PO TID #90 tabs 02/21/22 clopidogrel 75 mg tablet 75 mg PO DAILY #7 tabs 02/21/22 ibuprofen 800 mg tablet 800 mg PO Q8H PRN pain (scale 02/21/22 score 1-3) #30 tabs lamotrigine 25 mg tablet 25 mg PO BEDTIME #30 tabs 02/21/22 loratadine 10 mg tablet 10 mg PO DAILY #30 tabs 02/21/22 metoprolol succinate 50 mg 50 mg PO BEDTIME #7 tabs 02/21/22 tablet,extended release 24 hr nitroglycerin 0.4 mg sublingual 0.4 mg sublingual Q5MX3 PRN Angina 02/21/22 tablet (Nitrostat) #60 tabs paroxetine HCl 10 mg tablet (Paxil) 10 mg PO DAILY #30 tabs 02/21/22 paroxetine HCl 40 mg tablet (Paxil) 40 mg PO DAILY #30 tabs 02/21/22 pregabalin 25 mg capsule (Lyrica) 25 mg PO TID #21 caps 02/21/22 trazodone 50 mg tablet 150 mg PO BEDTIME #14 tabs 02/21/22 Mental Status Exam Mental Status Exam Patient Appearance: Appropriate Patient Orientation: Person, Place, Time and Situation Level of Consciousness: Alert Patient Behavior: Appropriate, Talkative, Cooperative and Good Eye Contact Mood Description: Depressed and Anxious Affect Description: Flat Patient Cognition Impaired: No Ability to Follow Directions: Good Speech Pattern: Spontaneous Speech Memory Description: Intact Hallucinations: None Delusions: Not Present Perceptual Disturbances: Derealization Thought Process: Distracted and Rumination Thought Content: positive for Circumstantial, positive for Goal Oriented and positive for Perseveration Depressive Symptoms: Increased Anxiety, Diff. Making Decisions, Muscle Tension, Muscle Pain, Crying Spells, Feelings of Worthlessness, Significant Weight Gain, Hopelessness, Increased Fatigue, Low Self Esteem, Loss of Energy and Difficulty Concentrating Judgement: Good Data Data Completed and Pending Completed studies during hospitalization [Text1]: 02/15/22 02/15/22 02/15/22 08:23 08:23 08:23 Sodium 142 Potassium 4.1 Chloride 103 Carbon Dioxide 23 Anion Gap 20 BUN 16 Creatinine 1.03 Estim Creat Clear Calc TNP Estimated GFR 56 Random Glucose 107 Estimat Average Glucose 114 Hemoglobin A1c % 5.6 Calcium 9.1 Magnesium 1.7 Triglycerides 187 Cholesterol 178 LDL Cholesterol, Calc 100 HDL Cholesterol 41 Vitamin B12 303 Folate 4.7 TSH 2.24 Free T4 0.93 Imaging Diagnostic Imaging Impressions Venous Duplex 02/15/22 15:22 IMPRESSION: No DVT demonstrated in either lower extremity. DS: Summary Hospital Course Hospital Course: Admission to adult psychiatry for exacerbation of symptoms of depression, anxiety in the context of physical injuries and chronic pain. Paxil was maintained. Lamictal, Buspirone, Trazodone were initiated. Cymbalta was considered, however, pt's cardiology team opposed this due to pt's ongoing CAD. Pt was reconnected with her pain team at [facility] and with [facility] as she was in process of assessment for TKR. She will follow up with PCP and cardiology within the week and will meet new out patient psychiatric providers as well for psychotherapy and medication. Pt was encouraged to call and or return as needed. Time spent discussing smoking cessation with patient: 3 to 10 minutes Status at Discharge Functional status at discharge: independent ambulation Overall status at discharge: patient is progressing back to baseline Time Spent with Patient Time attestation: Total time spent providing and/or coordinating discharge services: 35 Time spent: Greater than 30 minutes Discharge Plan Discharge Anticipated Discharge Date/Time: 02/21/22 14:00 Patient Disposition: Home, Self-Care Discharge Diagnosis: Recurrent Major Depression Generalized Anxiety Disorder Referrals: [facility] Program [Other] - 02/22/22 11:00 am (Patient referral to [facility] program ) Maricel Abdalla [Other] - 02/23/22 2:00 pm (Initial diagnostic evaluation for therapy. Appointment in person at [facility]) Jennie Ge [Other] - 03/22/22 10:00 am (Follow-up discharge appointment. Initial evaluation by Psychiatric Medication Provider. Appointment in person at [facility]) Jennie Ge [Other] - 04/20/22 11:00 am (Medication Management appointment. Appointment is by tele-health. Check your email for a link to the scheduled appointment.) Jagdeep Reis MD [Physician] - 02/27/22 3:20 pm Rachael Aggarwal MD [Primary Care Provider] - 1 Week Discharge Medications: New buspirone 5 mg Tablet 5 mg PO TID Qty: 90 0RF atorvastatin 80 mg Tablet 80 mg PO BEDTIME Qty: 7 0RF trazodone 50 mg Tablet 150 mg PO BEDTIME Qty: 14 0RF metoprolol succinate 50 mg Tablet Extended Release 24 Hr 50 mg PO BEDTIME Qty: 7 0RF Protocol: Hold for SBP/HR < HOLD for SBP < : 90 HOLD for HR < : 60 clopidogrel 75 mg Tablet 75 mg PO DAILY Qty: 7 0RF amlodipine 5 mg Tablet 5 mg PO DAILY Qty: 7 0RF Protocol: Hold for SBP< HOLD for SBP < : 90 lamotrigine 25 mg Tablet 25 mg PO BEDTIME Qty: 30 0RF nitroglycerin [Nitrostat] 0.4 mg Tablet, Sublingual 0.4 mg sublingual Q5MX3 PRN (Reason: Angina) Qty: 60 0RF aspirin 81 mg Tablet,Chewable 81 mg PO DAILY Qty: 7 0RF loratadine 10 mg Tablet 10 mg PO DAILY Qty: 30 0RF pregabalin [Lyrica] 25 mg Capsule 25 mg PO TID Qty: 21 0RF paroxetine HCl [Paxil] 40 mg tablet 40 mg PO DAILY Qty: 30 0RF paroxetine HCl [Paxil] 10 mg tablet 10 mg PO DAILY Qty: 30 0RF ibuprofen 800 mg tablet 800 mg PO Q8H PRN (Reason: pain (scale score 1-3)) Qty: 30 0RF Continued tizanidine 4 mg tablet 4 mg PO BID PRN (Reason: for muscle spasm) Qty: 180 8RF Discharge Orders: Discharge Order (Routine); Ordered 02/21/22 Ordered By: Karis Romano Diet: Advance to usual diet Activity on Discharge: As tolerated Stand Alone Forms: Patient Portal Discharge page, Community Support Care Plan Goals: Maintain mood and stable behaviors Take medications as directed Practice coping skills Continue with out patient providers and reach out to them as needed Health Concerns: Stable mood and behavior Plan of Treatment: [facility]- February 23, 2022 9a- [phone] [place] [address] PCP, Rachael Aggarwal's office will call you to schedule a post discharge appointment [phone] Kiran Cohn, Christophe, 2021 5:30pm [phone] Follow up with out patient providers as scheduled Take medications as directed Assessment: Pt interviewed prior to discharge and found to be fully oriented and without SI/HI. She demonstrates insight and appropriate judgment in terms of wanting to pursue treatment. She is not in imminent risk of harm to self or others and has a safety plan that includes presenting to the nearest ER or calling 911 if feeling unsafe. She has been observed by nursing staff throughout admission and has not engaged in any behaviors which suggest dangerousness to self or others and has demonstrated appropriate behaviors and impulse control. Discharge Date/Time: 02/21/22 14:39
== END 2022-02-21 14:39 | disposition home or self-care (01) | DRG 751 ==
PROVIDERS: Physician Assistant; Registered Nurse; Admitting Provider Psychiatry & Neurology Psychiatry; PCP Family Medicine; Visit Provider Clinical Nurse Specialist Psychiatric/Mental Health, Adult
DX: F33.9 Major depressive disorder, recurrent, unspecified (principal); R45.851 Suicidal ideations; F07.81 Postconcussional syndrome; E78.5 Hyperlipidemia, unspecified; G89.29 Other chronic pain; I87.2 Venous insufficiency (chronic) (peripheral); F41.1 Generalized anxiety disorder; I10 Essential (primary) hypertension; I25.10 Atherosclerotic heart disease of native coronary artery without angina pectoris; Z95.5 Presence of coronary angioplasty implant and graft; Z79.02 Long term (current) use of antithrombotics/antiplatelets; Z88.0 Allergy status to penicillin; Z79.82 Long term (current) use of aspirin; Z79.899 Other long term (current) drug therapy
CPT/HCPCS: 36415; 80048; 80061; 82607; 82746; 83036; 83735; 84439; 84443; 90792; 92950; 93005; 93970; 97162